=== PATIENT | female | born 1955 | race Caucasian/White ===

== ENCOUNTER 2022-05-28 17:06 | Inpatient (IN) ==
[2022-05-28 17:36] LABS: POC Calcium, Ionized 1.18 (1.16-1.32); POC Creatinine 3.4 (0.6-1.2); POC Potassium 4.4 (3.3-5.1)
[2022-05-28 18:20] LABS: Basophils # (Auto) 0.04 K/mcL (0.00-0.30); Basophils % (Auto) 0.4 % (0.0-2.0); Eosinophils # (Auto) 0.08 K/mcL (0.00-0.70); Eosinophils % (Auto) 0.8 % (0.0-7.0); Hemoglobin 9.6 g/dL (11.2-15.7); Lymphocytes # (Auto) 1.27 K/mcL (1.50-4.80); Mean Platelet Volume 10.1 fL (8.8-12.5); Monocytes # (Auto) 1.03 K/mcL (0.10-0.90); Monocytes % (Auto) 9.7 % (1.0-12.0); Neutrophils % (Auto) 76.3 % (38.0-78.0); Platelet Count 423 K/mcL (140-440); WBC 10.6 K/mcL (4.5-11.0)
[2022-05-28 18:33] LABS: Prothrombin Time 13.5 sec (11.9-14.5)
--- NOTE | 2022-05-28 18:35 | Emergency Department Note ---
HPI General Chief complaint: Rectal Bleed Stated complaint: kidney function eval Time Seen by Provider: 05/28/22 17:08 Source: patient Mode of arrival: ambulatory Limitations: no limitations History of Present Illness HPI Narrative: Narrative: This is a 67-year-old female who presents to the emergency department with abnormal outpatient kidney function. Patient was sent in by her primary care provider. She states that she had labs a week ago which showed poor kidney function she had been drinking fluids for the last 10 days and had them repeated today which showed that they do were not any better even slightly worse. She is unsure of the exact values of her creatinine or GFR. She states that she has some dyspnea on exertion she denies any flank pain urinary changes, she is making urine. She denies any NSAID use she denies history of hypertension and is not on any antihypertensives. Related Data Home Medications Medication Instructions Recorded Confirmed cholecalciferol (vitamin D3) 125 125 mcg PO QDAY 10/03/20 05/28/22 mcg (5,000 unit) tablet (Vitamin D3) multivitamin 1 tab PO QDAY 10/03/20 05/28/22 vit C 250 mg-vit E 90 mg-zinc 40 2 tab PO QDAY 10/03/20 05/28/22 mg-copper 1 [id number]-roqahu capsule (PreserVision AREDS-2) albuterol sulfate 90 mcg/actuation 2 puff inhalation Q4-6HP PRN 05/28/22 aerosol inhaler Dyspnea fluticasone fur. 200 mcg-umeclid 1 ea inhalation QDAY 05/28/22 05/29/22 62.5 mcg-vilant 25 mcg inhalat.powder (Trelegy Ellipta) prednisolone acetate 1 % eye 1 drp ophthalmic (eye) QID 05/28/22 05/29/22 drops,suspension omeprazole 20 mg capsule,delayed 20 mg PO QHS 05/29/22 05/29/22 release rosuvastatin 5 mg tablet 5 mg PO QDAY 05/29/22 05/29/22 Allergies Allergy/AdvReac Type Severity Reaction Status Date / Time codeine AdvReac Mild Vomiting Verified 05/29/22 00:17 [From Tylenol-Codeine #3] Review of Systems ROS ROS Narrative: Narrative: All systems ED: reviewed and negative except as stated. PFSH Narrative Patient History Narrative: Narrative: Medical/Surgical/Family History All Active Problems (Updated 05/29/22 @ 13:30 by Jalyn Sanders MD) Positive fecal occult blood test (Acute) Chronic anemia (Acute) Acute on chronic kidney failure (Acute) Acute kidney injury (Acute) Ruptured globe of right eye (Acute) Laceration of scalp (Acute) Chronic right hip pain (Acute) Social History Smoking Status: Never smoker Exam Narrative Narrative: Narrative: Vital signs noted General: Awake. Alert. No distress. HEENT: NCAT PERRL EOMI. No conjunctivitis. Membranes moist. Neck: Supple, trachea midline Cardiovascular: Tachycardic. No murmur. No rubs. No gallops. Respiratory: No respiratory distress. Breath sounds equal. Lungs clear. Gastrointestinal: Soft. No tenderness Musculoskeletal: No pain. No soft tissue swelling. Good ROM. No signs injury Skin: Warm. Dry. No rash Neurologic: Alert and oriented x3 moves all extremities equally and fully, speech is fluent face is symmetric General Limitations: no limitations Course Vital Signs Vital signs: Vital Signs Temperature 97.7 F 05/28/22 17:08 Pulse Rate 113 H 05/28/22 17:08 Respiratory Rate 22 05/28/22 17:08 Blood Pressure 180/96 05/28/22 17:08 Pulse Oximetry (%) 92 05/28/22 17:08 Oxygen Delivery Method Room Air 05/28/22 17:08 Temperature 97.3 F 05/29/22 08:02 Pulse Rate 101 H 05/29/22 13:13 Respiratory Rate 25 H 05/29/22 13:13 Blood Pressure 121/92 05/29/22 10:52 Pulse Oximetry (%) 96 05/29/22 13:13 Oxygen Delivery Method Nasal Cannula 05/29/22 13:13 Oxygen Flow Rate (L/min) 1 05/29/22 13:13 [facility] MDM Narrative Medical decision making narrative: Narrative: Patient presents to the emergency department with signs of kidney injury and anemia. I have no prior labs for comparison and no values from last week or today which were obtained outpatient. Patient's hemoglobin is 9.6. She denies any black tarry stool or bright red blood per rectum she states that she had a Hemoccult test which was positive. I was able to get a hold of Dr. Joyce patient's primary care provider states that her kidney function had worsened over the last week. She did not recall her having any known chronic kidney disease. The patient has no history of hypertension or diabetes. The patient denies any NSAID use. The patient was able to find her labs from 10 days ago she had a hemoglobin of 9.3, BUN of 40, creatinine of 3.02 GFR of [address] Garner who agreed to follow up with Patient outpatient should there be no other emergent process. Patient signed out to oncoming physician pending the rest of her imaging and lab work-up. Lab Data 05/29/22 05:09 05/29/22 05:08 Labs: Lab Results 05/28/22 05/28/22 05/28/22 Range/Units 17:32 17:32 17:32 WBC 10.6 (4.5-11.0) K/mcL RBC 3.10 L (3.59-5.38) M/mcL Hgb 9.6 L (11.2-15.7) g/dL Hct 31.0 L (34.1-44.9) % POC Hct (36-48) MCV 100.0 (80.0-100.0) fL MCH 31.0 (26.0-34.0) pg MCHC 31.0 (31.0-36.0) g/dL RDW 14.0 (11.5-14.5) % Plt Count 423 (140-440) K/mcL MPV 10.1 (8.8-12.5) fL Immature Gran % (Auto) 0.8 H (0.0-0.5) % Neut % (Auto) 76.3 (38.0-78.0) % Lymph % (Auto) 12.0 L (15.5-49.0) % Cass % (Auto) 9.7 (1.0-12.0) % Eos % (Auto) 0.8 (0.0-7.0) % Baso % (Auto) 0.4 (0.0-2.0) % Lymph # (Auto) 1.27 L (1.50-4.80) K/mcL Cass # (Auto) 1.03 H (0.10-0.90) K/mcL Eos # (Auto) 0.08 (0.00-0.70) K/mcL Baso # (Auto) 0.04 (0.00-0.30) K/mcL Immature Gran # 0.09 H (0.00-0.05) K/mcl Absolute Neutrophils 8.09 H (1.80-8.00) K/mcL PT 13.5 (11.9-14.5) sec INR 1.0 (0.9-1.1) D-Dimer (0.27-0.50) ug/mL POC Sodium (133-145) POC Potassium (3.3-5.1) POC Chloride (96-108) POC Total CO2 (22-30) POC BUN (6-20) POC Creatinine (0.6-1.2) POC Glucose (70-105) POC WB Ioniz Calcium (1.16-1.32) Iron (37-145) ug/dL TIBC (228-428) ug/dl Unsat Iron Binding (112-346) mcg/dL Transferrin % Sat (15-50) % Total Bilirubin 0.2 (0.1-1.0) mg/dL Direct Bilirubin < 0.2 (0-0.3) mg/dL AST 36 H (<32) U/L ALT 68 H (<40) U/L Alkaline Phosphatase 124 H (39-117) U/L NT-Pro-B Natriuret Pep (<125.0) pg/mL Total Protein 6.9 (5.9-8.4) gm/dL Albumin 3.8 (3.2-5.2) gm/dL Globulin 3.1 (2.2-3.7) gm/dL Urine Color Urine Appearance (Clear) Urine pH (5.0-9.0) Ur Specific [place] (1.000-1.035) Urine Protein (Negative) mg/dL Urine Glucose (UA) (Negative) mg/dL Urine Ketones (Negative) mg/dL Urine Occult Blood (Negative) mg/dL Urine Nitrate (Negative) Urine Bilirubin (Negative) mg/dL Urine Urobilinogen mg/dL Ur Leukocyte Esterase (Negative) /uL Urine RBC (0-3) /hpf Urine WBC (0-4) /hpf Ur Squamous Epith Cells (0-4) /hpf Urine Bacteria (0) /hpf Urine Mucus (None) /hpf Ur Culture Indicated? Ur Random Creatinine (28.0-217.0) mg/dL Ur Random Sodium mmol/L Urine Urea Nitrogen mg/dL POC Troponin I (0.00-0.08) 05/28/22 05/28/22 05/28/22 Range/Units 17:32 17:32 17:32 WBC (4.5-11.0) K/mcL RBC (3.59-5.38) M/mcL Hgb (11.2-15.7) g/dL Hct (34.1-44.9) % POC Hct 33.0 L (36-48) MCV (80.0-100.0) fL MCH (26.0-34.0) pg MCHC (31.0-36.0) g/dL RDW (11.5-14.5) % Plt Count (140-440) K/mcL MPV (8.8-12.5) fL Immature Gran % (Auto) (0.0-0.5) % Neut % (Auto) (38.0-78.0) % Lymph % (Auto) (15.5-49.0) % Cass % (Auto) (1.0-12.0) % Eos % (Auto) (0.0-7.0) % Baso % (Auto) (0.0-2.0) % Lymph # (Auto) (1.50-4.80) K/mcL Cass # (Auto) (0.10-0.90) K/mcL Eos # (Auto) (0.00-0.70) K/mcL Baso # (Auto) (0.00-0.30) K/mcL Immature Gran # (0.00-0.05) K/mcl Absolute Neutrophils (1.80-8.00) K/mcL PT (11.9-14.5) sec INR (0.9-1.1) D-Dimer 1.20 H (0.27-0.50) ug/mL POC Sodium 138 (133-145) POC Potassium 4.4 (3.3-5.1) POC Chloride 106 (96-108) POC Total CO2 24.0 (22-30) POC BUN 47 H (6-20) POC Creatinine 3.4 H (0.6-1.2) POC Glucose 111 H (70-105) POC WB Ioniz Calcium 1.18 (1.16-1.32) Iron (37-145) ug/dL TIBC (228-428) ug/dl Unsat Iron Binding (112-346) mcg/dL Transferrin % Sat (15-50) % Total Bilirubin (0.1-1.0) mg/dL Direct Bilirubin (0-0.3) mg/dL AST (<32) U/L ALT (<40) U/L Alkaline Phosphatase (39-117) U/L NT-Pro-B Natriuret Pep 66936.0 H (<125.0) pg/mL Total Protein (5.9-8.4) gm/dL Albumin (3.2-5.2) gm/dL Globulin (2.2-3.7) gm/dL Urine Color Urine Appearance (Clear) Urine pH (5.0-9.0) Ur Specific [place] (1.000-1.035) Urine Protein (Negative) mg/dL Urine Glucose (UA) (Negative) mg/dL Urine Ketones (Negative) mg/dL Urine Occult Blood (Negative) mg/dL Urine Nitrate (Negative) Urine Bilirubin (Negative) mg/dL Urine Urobilinogen mg/dL Ur Leukocyte Esterase (Negative) /uL Urine RBC (0-3) /hpf Urine WBC (0-4) /hpf Ur Squamous Epith Cells (0-4) /hpf Urine Bacteria (0) /hpf Urine Mucus (None) /hpf Ur Culture Indicated? Ur Random Creatinine (28.0-217.0) mg/dL Ur Random Sodium mmol/L Urine Urea Nitrogen mg/dL POC Troponin I (0.00-0.08) 05/28/22 05/28/22 05/28/22 Range/Units 18:02 19:10 19:10 WBC (4.5-11.0) K/mcL RBC (3.59-5.38) M/mcL Hgb (11.2-15.7) g/dL Hct (34.1-44.9) % POC Hct (36-48) MCV (80.0-100.0) fL MCH (26.0-34.0) pg MCHC (31.0-36.0) g/dL RDW (11.5-14.5) % Plt Count (140-440) K/mcL MPV (8.8-12.5) fL Immature Gran % (Auto) (0.0-0.5) % Neut % (Auto) (38.0-78.0) % Lymph % (Auto) (15.5-49.0) % Cass % (Auto) (1.0-12.0) % Eos % (Auto) (0.0-7.0) % Baso % (Auto) (0.0-2.0) % Lymph # (Auto) (1.50-4.80) K/mcL Cass # (Auto) (0.10-0.90) K/mcL Eos # (Auto) (0.00-0.70) K/mcL Baso # (Auto) (0.00-0.30) K/mcL Immature Gran # (0.00-0.05) K/mcl Absolute Neutrophils (1.80-8.00) K/mcL PT (11.9-14.5) sec INR (0.9-1.1) D-Dimer (0.27-0.50) ug/mL POC Sodium (133-145) POC Potassium (3.3-5.1) POC Chloride (96-108) POC Total CO2 (22-30) POC BUN (6-20) POC Creatinine (0.6-1.2) POC Glucose (70-105) POC WB Ioniz Calcium (1.16-1.32) Iron 42 (37-145) ug/dL TIBC 242 (228-428) ug/dl Unsat Iron Binding 200 (112-346) mcg/dL Transferrin % Sat 17 (15-50) % Total Bilirubin (0.1-1.0) mg/dL Direct Bilirubin (0-0.3) mg/dL AST (<32) U/L ALT (<40) U/L Alkaline Phosphatase (39-117) U/L NT-Pro-B Natriuret Pep (<125.0) pg/mL Total Protein (5.9-8.4) gm/dL Albumin (3.2-5.2) gm/dL Globulin (2.2-3.7) gm/dL Urine Color Urine Appearance (Clear) Urine pH (5.0-9.0) Ur Specific [place] (1.000-1.035) Urine Protein (Negative) mg/dL Urine Glucose (UA) (Negative) mg/dL Urine Ketones (Negative) mg/dL Urine Occult Blood (Negative) mg/dL Urine Nitrate (Negative) Urine Bilirubin (Negative) mg/dL Urine Urobilinogen mg/dL Ur Leukocyte Esterase (Negative) /uL Urine RBC (0-3) /hpf Urine WBC (0-4) /hpf Ur Squamous Epith Cells (0-4) /hpf Urine Bacteria (0) /hpf Urine Mucus (None) /hpf Ur Culture Indicated? Ur Random Creatinine 80.3 (28.0-217.0) mg/dL Ur Random Sodium mmol/L Urine Urea Nitrogen 711 mg/dL POC Troponin I (0.00-0.08) 05/28/22 05/28/22 05/28/22 Range/Units 19:10 19:10 20:30 WBC (4.5-11.0) K/mcL RBC (3.59-5.38) M/mcL Hgb (11.2-15.7) g/dL Hct (34.1-44.9) % POC Hct (36-48) MCV (80.0-100.0) fL MCH (26.0-34.0) pg MCHC (31.0-36.0) g/dL RDW (11.5-14.5) % Plt Count (140-440) K/mcL MPV (8.8-12.5) fL Immature Gran % (Auto) (0.0-0.5) % Neut % (Auto) (38.0-78.0) % Lymph % (Auto) (15.5-49.0) % Cass % (Auto) (1.0-12.0) % Eos % (Auto) (0.0-7.0) % Baso % (Auto) (0.0-2.0) % Lymph # (Auto) (1.50-4.80) K/mcL Cass # (Auto) (0.10-0.90) K/mcL Eos # (Auto) (0.00-0.70) K/mcL Baso # (Auto) (0.00-0.30) K/mcL Immature Gran # (0.00-0.05) K/mcl Absolute Neutrophils (1.80-8.00) K/mcL PT (11.9-14.5) sec INR (0.9-1.1) D-Dimer (0.27-0.50) ug/mL POC Sodium (133-145) POC Potassium (3.3-5.1) POC Chloride (96-108) POC Total CO2 (22-30) POC BUN (6-20) POC Creatinine (0.6-1.2) POC Glucose (70-105) POC WB Ioniz Calcium (1.16-1.32) Iron (37-145) ug/dL TIBC (228-428) ug/dl Unsat Iron Binding (112-346) mcg/dL Transferrin % Sat (15-50) % Total Bilirubin (0.1-1.0) mg/dL Direct Bilirubin (0-0.3) mg/dL AST (<32) U/L ALT (<40) U/L Alkaline Phosphatase (39-117) U/L NT-Pro-B Natriuret Pep (<125.0) pg/mL Total Protein (5.9-8.4) gm/dL Albumin (3.2-5.2) gm/dL Globulin (2.2-3.7) gm/dL Urine Color Yellow Urine Appearance Clear (Clear) Urine pH 5.0 (5.0-9.0) Ur Specific [place] 1.019 (1.000-1.035) Urine Protein 30 A (Negative) mg/dL Urine Glucose (UA) Negative (Negative) mg/dL Urine Ketones Negative (Negative) mg/dL Urine Occult Blood Negative (Negative) mg/dL Urine Nitrate Negative (Negative) Urine Bilirubin Negative (Negative) mg/dL Urine Urobilinogen Negative mg/dL Ur Leukocyte Esterase Negative (Negative) /uL Urine RBC 5 H (0-3) /hpf Urine WBC 7 H (0-4) /hpf Ur Squamous Epith Cells 0 (0-4) /hpf Urine Bacteria Few A (0) /hpf Urine Mucus Few A (None) /hpf Ur Culture Indicated? Yes Ur Random Creatinine (28.0-217.0) mg/dL Ur Random Sodium 72 mmol/L Urine Urea Nitrogen mg/dL POC Troponin I 0.05 (0.00-0.08) 05/28/22 Range/Units 20:40 WBC (4.5-11.0) K/mcL RBC (3.59-5.38) M/mcL Hgb (11.2-15.7) g/dL Hct (34.1-44.9) % POC Hct 29.0 L (36-48) MCV (80.0-100.0) fL MCH (26.0-34.0) pg MCHC (31.0-36.0) g/dL RDW (11.5-14.5) % Plt Count (140-440) K/mcL MPV (8.8-12.5) fL Immature Gran % (Auto) (0.0-0.5) % Neut % (Auto) (38.0-78.0) % Lymph % (Auto) (15.5-49.0) % Cass % (Auto) (1.0-12.0) % Eos % (Auto) (0.0-7.0) % Baso % (Auto) (0.0-2.0) % Lymph # (Auto) (1.50-4.80) K/mcL Cass # (Auto) (0.10-0.90) K/mcL Eos # (Auto) (0.00-0.70) K/mcL Baso # (Auto) (0.00-0.30) K/mcL Immature Gran # (0.00-0.05) K/mcl Absolute Neutrophils (1.80-8.00) K/mcL PT (11.9-14.5) sec INR (0.9-1.1) D-Dimer (0.27-0.50) ug/mL POC Sodium 138 (133-145) POC Potassium 4.0 (3.3-5.1) POC Chloride 105 (96-108) POC Total CO2 22.0 (22-30) POC BUN 46 H (6-20) POC Creatinine 3.5 H (0.6-1.2) POC Glucose 104 (70-105) POC WB Ioniz Calcium 1.21 (1.16-1.32) Iron (37-145) ug/dL TIBC (228-428) ug/dl Unsat Iron Binding (112-346) mcg/dL Transferrin % Sat (15-50) % Total Bilirubin (0.1-1.0) mg/dL Direct Bilirubin (0-0.3) mg/dL AST (<32) U/L ALT (<40) U/L Alkaline Phosphatase (39-117) U/L NT-Pro-B Natriuret Pep (<125.0) pg/mL Total Protein (5.9-8.4) gm/dL Albumin (3.2-5.2) gm/dL Globulin (2.2-3.7) gm/dL Urine Color Urine Appearance (Clear) Urine pH (5.0-9.0) Ur Specific [place] (1.000-1.035) Urine Protein (Negative) mg/dL Urine Glucose (UA) (Negative) mg/dL Urine Ketones (Negative) mg/dL Urine Occult Blood (Negative) mg/dL Urine Nitrate (Negative) Urine Bilirubin (Negative) mg/dL Urine Urobilinogen mg/dL Ur Leukocyte Esterase (Negative) /uL Urine RBC (0-3) /hpf Urine WBC (0-4) /hpf Ur Squamous Epith Cells (0-4) /hpf Urine Bacteria (0) /hpf Urine Mucus (None) /hpf Ur Culture Indicated? Ur Random Creatinine (28.0-217.0) mg/dL Ur Random Sodium mmol/L Urine Urea Nitrogen mg/dL POC Troponin I (0.00-0.08) Discharge Plan Patient/Caregiver Discharge Instructions Pt seen by DIMENSIONAL ENGINEER/PA only: No Clinical Impression: Acute kidney injury Patient Disposition: Still a Patient Discharge Date/Time: 05/28/22 22:05
[2022-05-28 18:38] LABS: ALT/SGPT 68 U/L (<40); AST/SGOT 36 U/L (<32); Albumin 3.8 gm/dL (3.2-5.2); Alkaline Phosphatase 124 U/L (39-117); Bilirubin,Direct < 0.2 mg/dL (0-0.3); Bilirubin,Total 0.2 mg/dL (0.1-1.0); Globulin 3.1 gm/dL (2.2-3.7)
[2022-05-28 19:00] LABS: Iron 42 ug/dL (37-145); TIBC Calculation 242 ug/dl (228-428); Transferrin % Saturation 17 % (15-50)
--- NOTE | 2022-05-28 19:39 | Emergency Department Note ---
Course Course Course Narrative: Assumed care of the patient at 1900. [facility] report check labs check patient. Patient has appreciable deterioration of her kidney function which we're not sure how acute it is. Patient had a set of labs done several weeks ago in the clinic, which showed worsening function and she was instructed to get them rechecked and upon rechecking, was called to come in to the ED. She also had a positive hemoccult and some worsening SOB. Dr. Augustin discussed with the bluing oven tender who felt she could be worked up as an outpatient pending an ultrasound which failed to show any obstructions. Her blood work showed a hemoglobin hematocrit of 9.6 and 31 compared to a hemoglobin of 13.69 months ago her creatinine is 3.4 with a calculated GFR of 13.4 when it was 58 in September. BNP is 10,170. Lungs show bibasilar rales. 6 chest x-ray shows a left-sided pleural effusion the patient on the monitor going in and out of atrial fib with a resting rate of approximately 109-140. Patient was given metoprolol 5 mg IV as well as Bumex 0.5 mg IV and started on heparin not sure when she started going in and out of atrial fib so I do not feel comfortable cardioverting her. Patient denies any chest pains but does admit to the palpitations. She states that over the the winter she was treating her orthopedic pain with lots of nonsteroidals and this apparently is what injured her kidneys. Her ultrasound returned with a measurements of the kidneys which neither have hydronephrosis masses or stones. In the also commented on the bilateral pleural effusions. We will admit the patient for CHF and intermittent atrial fibrillation and GISELLE. Vital Signs Vital signs: Vital Signs Temperature 97.7 F 05/28/22 17:08 Pulse Rate 113 H 05/28/22 17:08 Respiratory Rate 22 05/28/22 17:08 Blood Pressure 180/96 05/28/22 17:08 Pulse Oximetry (%) 92 05/28/22 17:08 Oxygen Delivery Method Room Air 05/28/22 17:08 Temperature 97.6 F 05/29/22 00:01 Pulse Rate 104 H 05/29/22 00:01 Respiratory Rate 14 05/29/22 00:01 Blood Pressure 130/116 05/29/22 00:01 Pulse Oximetry (%) 95 05/29/22 00:01 Oxygen Delivery Method Oxymask 05/29/22 00:01 Oxygen Flow Rate (L/min) 2 05/29/22 00:01 MDM MDM Narrative Medical decision making narrative: Narrative: Lab Data 05/28/22 17:32 Labs: Lab Results 05/28/22 05/28/22 05/28/22 Range/Units 17:32 17:32 17:32 WBC 10.6 (4.5-11.0) K/mcL RBC 3.10 L (3.59-5.38) M/mcL Hgb 9.6 L (11.2-15.7) g/dL Hct 31.0 L (34.1-44.9) % POC Hct (36-48) MCV 100.0 (80.0-100.0) fL MCH 31.0 (26.0-34.0) pg MCHC 31.0 (31.0-36.0) g/dL RDW 14.0 (11.5-14.5) % Plt Count 423 (140-440) K/mcL MPV 10.1 (8.8-12.5) fL Immature Gran % (Auto) 0.8 H (0.0-0.5) % Neut % (Auto) 76.3 (38.0-78.0) % Lymph % (Auto) 12.0 L (15.5-49.0) % [place] % (Auto) 9.7 (1.0-12.0) % Eos % (Auto) 0.8 (0.0-7.0) % Baso % (Auto) 0.4 (0.0-2.0) % Lymph # (Auto) 1.27 L (1.50-4.80) K/mcL [place] # (Auto) 1.03 H (0.10-0.90) K/mcL Eos # (Auto) 0.08 (0.00-0.70) K/mcL Baso # (Auto) 0.04 (0.00-0.30) K/mcL Immature Gran # 0.09 H (0.00-0.05) K/mcl Absolute Neutrophils 8.09 H (1.80-8.00) K/mcL PT 13.5 (11.9-14.5) sec INR 1.0 (0.9-1.1) D-Dimer (0.27-0.50) ug/mL POC Sodium (133-145) POC Potassium (3.3-5.1) POC Chloride (96-108) POC Total CO2 (22-30) POC BUN (6-20) POC Creatinine (0.6-1.2) POC Glucose (70-105) POC WB Ioniz Calcium (1.16-1.32) Iron (37-145) ug/dL TIBC (228-428) ug/dl Unsat Iron Binding (112-346) mcg/dL Transferrin % Sat (15-50) % Total Bilirubin 0.2 (0.1-1.0) mg/dL Direct Bilirubin < 0.2 (0-0.3) mg/dL AST 36 H (<32) U/L ALT 68 H (<40) U/L Alkaline Phosphatase 124 H (39-117) U/L NT-Pro-B Natriuret Pep (<125.0) pg/mL Total Protein 6.9 (5.9-8.4) gm/dL Albumin 3.8 (3.2-5.2) gm/dL Globulin 3.1 (2.2-3.7) gm/dL Urine Color Urine Appearance (Clear) Urine pH (5.0-9.0) Ur Specific [place] (1.000-1.035) Urine Protein (Negative) mg/dL Urine Glucose (UA) (Negative) mg/dL Urine Ketones (Negative) mg/dL Urine Occult Blood (Negative) mg/dL Urine Nitrate (Negative) Urine Bilirubin (Negative) mg/dL Urine Urobilinogen mg/dL Ur Leukocyte Esterase (Negative) /uL Urine RBC (0-3) /hpf Urine WBC (0-4) /hpf Ur Squamous Epith Cells (0-4) /hpf Urine Bacteria (0) /hpf Urine Mucus (None) /hpf Ur Culture Indicated? Ur Random Creatinine (28.0-217.0) mg/dL Ur Random Sodium mmol/L Urine Urea Nitrogen mg/dL POC Troponin I (0.00-0.08) 05/28/22 05/28/22 05/28/22 Range/Units 17:32 17:32 17:32 WBC (4.5-11.0) K/mcL RBC (3.59-5.38) M/mcL Hgb (11.2-15.7) g/dL Hct (34.1-44.9) % POC Hct 33.0 L (36-48) MCV (80.0-100.0) fL MCH (26.0-34.0) pg MCHC (31.0-36.0) g/dL RDW (11.5-14.5) % Plt Count (140-440) K/mcL MPV (8.8-12.5) fL Immature Gran % (Auto) (0.0-0.5) % Neut % (Auto) (38.0-78.0) % Lymph % (Auto) (15.5-49.0) % [place] % (Auto) (1.0-12.0) % Eos % (Auto) (0.0-7.0) % Baso % (Auto) (0.0-2.0) % Lymph # (Auto) (1.50-4.80) K/mcL [place] # (Auto) (0.10-0.90) K/mcL Eos # (Auto) (0.00-0.70) K/mcL Baso # (Auto) (0.00-0.30) K/mcL Immature Gran # (0.00-0.05) K/mcl Absolute Neutrophils (1.80-8.00) K/mcL PT (11.9-14.5) sec INR (0.9-1.1) D-Dimer 1.20 H (0.27-0.50) ug/mL POC Sodium 138 (133-145) POC Potassium 4.4 (3.3-5.1) POC Chloride 106 (96-108) POC Total CO2 24.0 (22-30) POC BUN 47 H (6-20) POC Creatinine 3.4 H (0.6-1.2) POC Glucose 111 H (70-105) POC WB Ioniz Calcium 1.18 (1.16-1.32) Iron (37-145) ug/dL TIBC (228-428) ug/dl Unsat Iron Binding (112-346) mcg/dL Transferrin % Sat (15-50) % Total Bilirubin (0.1-1.0) mg/dL Direct Bilirubin (0-0.3) mg/dL AST (<32) U/L ALT (<40) U/L Alkaline Phosphatase (39-117) U/L NT-Pro-B Natriuret Pep 61497.0 H (<125.0) pg/mL Total Protein (5.9-8.4) gm/dL Albumin (3.2-5.2) gm/dL Globulin (2.2-3.7) gm/dL Urine Color Urine Appearance (Clear) Urine pH (5.0-9.0) Ur Specific [place] (1.000-1.035) Urine Protein (Negative) mg/dL Urine Glucose (UA) (Negative) mg/dL Urine Ketones (Negative) mg/dL Urine Occult Blood (Negative) mg/dL Urine Nitrate (Negative) Urine Bilirubin (Negative) mg/dL Urine Urobilinogen mg/dL Ur Leukocyte Esterase (Negative) /uL Urine RBC (0-3) /hpf Urine WBC (0-4) /hpf Ur Squamous Epith Cells (0-4) /hpf Urine Bacteria (0) /hpf Urine Mucus (None) /hpf Ur Culture Indicated? Ur Random Creatinine (28.0-217.0) mg/dL Ur Random Sodium mmol/L Urine Urea Nitrogen mg/dL POC Troponin I (0.00-0.08) 05/28/22 05/28/22 05/28/22 Range/Units 18:02 19:10 19:10 WBC (4.5-11.0) K/mcL RBC (3.59-5.38) M/mcL Hgb (11.2-15.7) g/dL Hct (34.1-44.9) % POC Hct (36-48) MCV (80.0-100.0) fL MCH (26.0-34.0) pg MCHC (31.0-36.0) g/dL RDW (11.5-14.5) % Plt Count (140-440) K/mcL MPV (8.8-12.5) fL Immature Gran % (Auto) (0.0-0.5) % Neut % (Auto) (38.0-78.0) % Lymph % (Auto) (15.5-49.0) % [place] % (Auto) (1.0-12.0) % Eos % (Auto) (0.0-7.0) % Baso % (Auto) (0.0-2.0) % Lymph # (Auto) (1.50-4.80) K/mcL [place] # (Auto) (0.10-0.90) K/mcL Eos # (Auto) (0.00-0.70) K/mcL Baso # (Auto) (0.00-0.30) K/mcL Immature Gran # (0.00-0.05) K/mcl Absolute Neutrophils (1.80-8.00) K/mcL PT (11.9-14.5) sec INR (0.9-1.1) D-Dimer (0.27-0.50) ug/mL POC Sodium (133-145) POC Potassium (3.3-5.1) POC Chloride (96-108) POC Total CO2 (22-30) POC BUN (6-20) POC Creatinine (0.6-1.2) POC Glucose (70-105) POC WB Ioniz Calcium (1.16-1.32) Iron 42 (37-145) ug/dL TIBC 242 (228-428) ug/dl Unsat Iron Binding 200 (112-346) mcg/dL Transferrin % Sat 17 (15-50) % Total Bilirubin (0.1-1.0) mg/dL Direct Bilirubin (0-0.3) mg/dL AST (<32) U/L ALT (<40) U/L Alkaline Phosphatase (39-117) U/L NT-Pro-B Natriuret Pep (<125.0) pg/mL Total Protein (5.9-8.4) gm/dL Albumin (3.2-5.2) gm/dL Globulin (2.2-3.7) gm/dL Urine Color Urine Appearance (Clear) Urine pH (5.0-9.0) Ur Specific [place] (1.000-1.035) Urine Protein (Negative) mg/dL Urine Glucose (UA) (Negative) mg/dL Urine Ketones (Negative) mg/dL Urine Occult Blood (Negative) mg/dL Urine Nitrate (Negative) Urine Bilirubin (Negative) mg/dL Urine Urobilinogen mg/dL Ur Leukocyte Esterase (Negative) /uL Urine RBC (0-3) /hpf Urine WBC (0-4) /hpf Ur Squamous Epith Cells (0-4) /hpf Urine Bacteria (0) /hpf Urine Mucus (None) /hpf Ur Culture Indicated? Ur Random Creatinine 80.3 (28.0-217.0) mg/dL Ur Random Sodium mmol/L Urine Urea Nitrogen 711 mg/dL POC Troponin I (0.00-0.08) 05/28/22 05/28/22 05/28/22 Range/Units 19:10 19:10 20:30 WBC (4.5-11.0) K/mcL RBC (3.59-5.38) M/mcL Hgb (11.2-15.7) g/dL Hct (34.1-44.9) % POC Hct (36-48) MCV (80.0-100.0) fL MCH (26.0-34.0) pg MCHC (31.0-36.0) g/dL RDW (11.5-14.5) % Plt Count (140-440) K/mcL MPV (8.8-12.5) fL Immature Gran % (Auto) (0.0-0.5) % Neut % (Auto) (38.0-78.0) % Lymph % (Auto) (15.5-49.0) % [place] % (Auto) (1.0-12.0) % Eos % (Auto) (0.0-7.0) % Baso % (Auto) (0.0-2.0) % Lymph # (Auto) (1.50-4.80) K/mcL [place] # (Auto) (0.10-0.90) K/mcL Eos # (Auto) (0.00-0.70) K/mcL Baso # (Auto) (0.00-0.30) K/mcL Immature Gran # (0.00-0.05) K/mcl Absolute Neutrophils (1.80-8.00) K/mcL PT (11.9-14.5) sec INR (0.9-1.1) D-Dimer (0.27-0.50) ug/mL POC Sodium (133-145) POC Potassium (3.3-5.1) POC Chloride (96-108) POC Total CO2 (22-30) POC BUN (6-20) POC Creatinine (0.6-1.2) POC Glucose (70-105) POC WB Ioniz Calcium (1.16-1.32) Iron (37-145) ug/dL TIBC (228-428) ug/dl Unsat Iron Binding (112-346) mcg/dL Transferrin % Sat (15-50) % Total Bilirubin (0.1-1.0) mg/dL Direct Bilirubin (0-0.3) mg/dL AST (<32) U/L ALT (<40) U/L Alkaline Phosphatase (39-117) U/L NT-Pro-B Natriuret Pep (<125.0) pg/mL Total Protein (5.9-8.4) gm/dL Albumin (3.2-5.2) gm/dL Globulin (2.2-3.7) gm/dL Urine Color Yellow Urine Appearance Clear (Clear) Urine pH 5.0 (5.0-9.0) Ur Specific [place] 1.019 (1.000-1.035) Urine Protein 30 A (Negative) mg/dL Urine Glucose (UA) Negative (Negative) mg/dL Urine Ketones Negative (Negative) mg/dL Urine Occult Blood Negative (Negative) mg/dL Urine Nitrate Negative (Negative) Urine Bilirubin Negative (Negative) mg/dL Urine Urobilinogen Negative mg/dL Ur Leukocyte Esterase Negative (Negative) /uL Urine RBC 5 H (0-3) /hpf Urine WBC 7 H (0-4) /hpf Ur Squamous Epith Cells 0 (0-4) /hpf Urine Bacteria Few A (0) /hpf Urine Mucus Few A (None) /hpf Ur Culture Indicated? Yes Ur Random Creatinine (28.0-217.0) mg/dL Ur Random Sodium 72 mmol/L Urine Urea Nitrogen mg/dL POC Troponin I 0.05 (0.00-0.08) 05/28/22 Range/Units 20:40 WBC (4.5-11.0) K/mcL RBC (3.59-5.38) M/mcL Hgb (11.2-15.7) g/dL Hct (34.1-44.9) % POC Hct 29.0 L (36-48) MCV (80.0-100.0) fL MCH (26.0-34.0) pg MCHC (31.0-36.0) g/dL RDW (11.5-14.5) % Plt Count (140-440) K/mcL MPV (8.8-12.5) fL Immature Gran % (Auto) (0.0-0.5) % Neut % (Auto) (38.0-78.0) % Lymph % (Auto) (15.5-49.0) % [place] % (Auto) (1.0-12.0) % Eos % (Auto) (0.0-7.0) % Baso % (Auto) (0.0-2.0) % Lymph # (Auto) (1.50-4.80) K/mcL [place] # (Auto) (0.10-0.90) K/mcL Eos # (Auto) (0.00-0.70) K/mcL Baso # (Auto) (0.00-0.30) K/mcL Immature Gran # (0.00-0.05) K/mcl Absolute Neutrophils (1.80-8.00) K/mcL PT (11.9-14.5) sec INR (0.9-1.1) D-Dimer (0.27-0.50) ug/mL POC Sodium 138 (133-145) POC Potassium 4.0 (3.3-5.1) POC Chloride 105 (96-108) POC Total CO2 22.0 (22-30) POC BUN 46 H (6-20) POC Creatinine 3.5 H (0.6-1.2) POC Glucose 104 (70-105) POC WB Ioniz Calcium 1.21 (1.16-1.32) Iron (37-145) ug/dL TIBC (228-428) ug/dl Unsat Iron Binding (112-346) mcg/dL Transferrin % Sat (15-50) % Total Bilirubin (0.1-1.0) mg/dL Direct Bilirubin (0-0.3) mg/dL AST (<32) U/L ALT (<40) U/L Alkaline Phosphatase (39-117) U/L NT-Pro-B Natriuret Pep (<125.0) pg/mL Total Protein (5.9-8.4) gm/dL Albumin (3.2-5.2) gm/dL Globulin (2.2-3.7) gm/dL Urine Color Urine Appearance (Clear) Urine pH (5.0-9.0) Ur Specific [place] (1.000-1.035) Urine Protein (Negative) mg/dL Urine Glucose (UA) (Negative) mg/dL Urine Ketones (Negative) mg/dL Urine Occult Blood (Negative) mg/dL Urine Nitrate (Negative) Urine Bilirubin (Negative) mg/dL Urine Urobilinogen mg/dL Ur Leukocyte Esterase (Negative) /uL Urine RBC (0-3) /hpf Urine WBC (0-4) /hpf Ur Squamous Epith Cells (0-4) /hpf Urine Bacteria (0) /hpf Urine Mucus (None) /hpf Ur Culture Indicated? Ur Random Creatinine (28.0-217.0) mg/dL Ur Random Sodium mmol/L Urine Urea Nitrogen mg/dL POC Troponin I (0.00-0.08) Discharge Plan Patient/Caregiver Discharge Instructions Pt seen by CLUBHOUSE ATTENDANT/PA only: No Patient Disposition: Xfer As Inpt ([facility]) Discharge Date/Time: 05/28/22 22:05
[2022-05-28 20:02] LABS: Appearance,Urine CLEAR (Clear); Bacteria,Urine FEW /hpf (0); Bilirubin,Urine Negative (Negative); Color,Urine YELLOW; Culture Indicated,Urine Yes; Glucose,Urine (UA) Negative (Negative); Ketones,Urine Negative (Negative); Leukocyte Esterase,Urine Negative /uL (Negative); Mucus,Urine FEW /hpf; Nitrate,Urine Negative (Negative); Protein,Urine 30 mg/dL (Negative); Specific Gravity,Urine 1.019 (1.000-1.035); Urine Blood Negative (Negative); Urine RBC 5 /hpf (0-3); Urine Squamous Epithelial Cell 0 /hpf (0-4); Urine WBC 7 /hpf (0-4); Urobilinogen,Urine Negative
[2022-05-28] MEDS ORDERED: METOPROLOL TARTRATE 5 MG/5 ML VIAL IV ONE ×2 (20:09→20:15)
[2022-05-28] MEDS ORDERED: BUMETANIDE 1 MG/4 ML VIAL IV ONE (20:16)
[2022-05-28] MEDS ORDERED: HEPARIN 5,000 UNIT/ML VIAL IV ONE (20:21)
[2022-05-28 20:44] LABS: POC Calcium, Ionized 1.21 (1.16-1.32); POC Creatinine 3.5 (0.6-1.2)
[2022-05-28] MEDS ORDERED: LACTULOSE 20 GM/30 ML ORAL.SOL PO PRN (22:11)
[2022-05-28] MEDS ORDERED: ONDANSETRON 4 MG/2 ML VIAL IV PRN ×2 (22:11)
[2022-05-28] MEDS ORDERED: DOCUSATE SODIUM 100 MG CAPSULE PO SCH (22:11)
[2022-05-28] MEDS ORDERED: 0.9 % SODIUM CHLORIDE 10 ML SYRINGE IV SCH ×2 (22:11)
[2022-05-28] MEDS ORDERED: SENNOSIDES 1 TABLET PO PRN (22:11)
[2022-05-28 22:14] LABS: Urea Nitrogen, Urine 711 mg/dL
[2022-05-28] MEDS: 0.9 % SODIUM CHLORIDE 10 ML SYRINGE IV SCH (22:16)
[2022-05-28] MEDS ORDERED: ACETAMINOPHEN 325 MG TABLET PO PRN (22:48)
[2022-05-28] MEDS ORDERED: IBUPROFEN 600 MG TABLET PO PRN (22:49)
[2022-05-28] MEDS ORDERED: ACETAMINOPHEN 500 MG TABLET PO ONE (23:15)
[2022-05-28] MEDS ORDERED: IBUPROFEN 600 MG TABLET PO ONE (23:17)
[2022-05-28] MEDS: DOCUSATE SODIUM 100 MG CAPSULE PO SCH (23:31)
[2022-05-28] MEDS: SENNOSIDES 1 TABLET PO SCH (23:32)
[2022-05-28] MEDS: METOPROLOL SUCCINATE 25 MG TAB.XL.24H PO SCH (23:32)
[2022-05-28] MEDS: FUROSEMIDE 100 MG/10 ML VIAL IV SCH (23:55)
[2022-05-28] MEDS: ENOXAPARIN 80 MG/0.8 ML SYRINGE SQ SCH (23:55)
--- NOTE | 2022-05-29 03:48 | XRay Report ---
CLINICAL INFORMATION: COPD shortness of breath COMPARISON: 03/30/2014 TECHNIQUE: PA and lateral views were obtained. FINDINGS: The heart is mildly enlarged. Mediastinum is unremarkable. Pulmonary vessels are mildly distended is mild interstitial edema in both lungs. Small bilateral pleural effusions noted. IMPRESSION: Moderate CHF Interpreted and Authenticated by: Reji Boss 05/29/22
--- NOTE | 2022-05-29 03:56 | Ultrasound Report ---
CLINICAL INFORMATION: Decreased renal function COMPARISON: None. FINDINGS: Both kidneys are normal in size, position, configuration and echotexture: The right is 9.5 x 5.8 cm and the left is 11 x 5.7 cm. There are no solid/cystic lesions, stones or hydronephrosis. The arterial blood flow is grossly normal to both kidneys on color Doppler. Urinary bladder volume is 67 cc with no postvoid residual residual. No focal bladder lesions. IMPRESSION: Normal renal ultrasound. Interpreted and Authenticated by: Reji Boss 05/29/22
[2022-05-29] MEDS: 0.9 % SODIUM CHLORIDE 10 ML SYRINGE IV SCH ×3 (05:58→20:14)
[2022-05-29 06:10] LABS: Basophils # (Auto) 0.05 K/mcL (0.00-0.30); Basophils % (Auto) 0.5 % (0.0-2.0); Hematocrit 29.2 % (34.1-44.9); Hemoglobin 9.1 g/dL (11.2-15.7); Lymphocytes # (Auto) 1.45 K/mcL (1.50-4.80); Lymphocytes % (Auto) 14.8 % (15.5-49.0); Mean Corpuscular HGB Conc 31.2 g/dL (31.0-36.0); Mean Platelet Volume 10.2 fL (8.8-12.5); Monocytes # (Auto) 0.99 K/mcL (0.10-0.90); Monocytes % (Auto) 10.1 % (1.0-12.0); Neutrophils % (Auto) 73.1 % (38.0-78.0); Platelet Count 362 K/mcL (140-440); RBC 2.89 M/mcL (3.59-5.38); Red Cell Distribution Width 13.6 % (11.5-14.5); WBC 9.8 K/mcL (4.5-11.0)
[2022-05-29] MEDS ORDERED: ACETAMINOPHEN 500 MG TABLET PO ONE (06:27)
[2022-05-29 06:28] LABS: Blood Urea Nitrogen 48 mg/dL (8-23); Carbon Dioxide 22 mmol/L (22-30); Chloride 102 mmol/L (96-108); Glomerular Filtration Rate 15; Glucose 91 mg/dL (70-105); Phosphorous 4.1 mg/dL (2.5-4.5)
[2022-05-29] MEDS ORDERED: METOPROLOL TARTRATE 5 MG/5 ML VIAL IV ONE ×4 (08:54→23:16)
[2022-05-29] MEDS ORDERED: methylPREDNISolone SOD SUCC 125 MG/2 ML VIAL IV ONE (08:54)
[2022-05-29] MEDS: ENOXAPARIN 80 MG/0.8 ML SYRINGE SQ SCH ×2 (09:07→20:13)
[2022-05-29] MEDS: FUROSEMIDE 100 MG/10 ML VIAL IV SCH ×2 (09:08→20:13)
[2022-05-29] MEDS: AZITHROMYCIN 250 MG TABLET PO SCH (09:08)
[2022-05-29] MEDS: METOPROLOL SUCCINATE 25 MG TAB.XL.24H PO SCH ×2 (09:08→20:14)
[2022-05-29] MEDS: DOCUSATE SODIUM 100 MG CAPSULE PO SCH ×2 (09:08→20:14)
--- NOTE | 2022-05-29 09:37 | Nephrology Consult Note ---
HPI Date of Consult Consult Date: 05/29/22 Requesting physician: Hector Augustin Primary Care Provider: Benson Joyce DO Consult Narrative Chief complaint: Elevated serum creatinine Reason for consult: Acute kidney injury History of present illness: Luana Menon is a 67-year-old female sent to ED by her PCP for elevated serum creatinine. Her serum creatinine was elevated a week ago and failed to improve. In ED, her workup was also significant for anemia, CHF and atrial fibrillation. cc:: CC: Roxana Cason MD Constitutional Constitutional: Present fatigue and weakness EENT Nose, mouth and throat: Absent nasal congestion or sore throat Cardiovascular Cardiovascular: Present palpatations; Absent chest pain Respiratory Respiratory: Absent dyspnea or wheezing Gastrointestinal Gastrointestinal: Absent nausea or vomiting Genitourinary Genitourinary: Absent dysuria or hematuria Integumentary Integumentary: Absent rash or wounds Neurological Neurological: Absent confusion Psychiatric Psychiatric: Absent anxiety or panic attacks Hematologic/Lymphatic Hematologic/Lymphatic: Absent easy bleeding or easy bruising Allergic/Immunologic Allergic/Immunologic: Absent tongue swelling or uticaria PFSH PFSH All Active Problems (Updated 05/29/22 @ 09:35 by Shon Mcmahon MD) Acute kidney injury (Acute) Ruptured globe of right eye (Acute) Laceration of scalp (Acute) Chronic right hip pain (Acute) Social History smoking status: Former smoker MEDS/ALLERGIES Home Medications and Allergies Home Medications Medication Instructions Recorded Confirmed Type cholecalciferol (vitamin D3) 125 125 mcg PO QDAY 10/03/20 05/28/22 History mcg (5,000 unit) tablet (Vitamin D3) multivitamin 1 tab PO QDAY 10/03/20 05/28/22 History vit C 250 mg-vit E 90 mg-zinc 40 2 tab PO QDAY 10/03/20 05/28/22 History mg-copper 1 [id number] capsule (PreserVision AREDS-2) methylprednisolone 4 mg tablets in 4 mg PO QDAY #21 tabs 02/18/22 Rx a dose pack (Medrol (Shiv)) albuterol sulfate 90 mcg/actuation 2 puff inhalation Q4-6HP PRN 05/28/22 05/28/22 History aerosol inhaler Dyspnea fluticasone fur. 200 mcg-umeclid 1 ea inhalation QDAY 05/28/22 05/28/22 History 62.5 mcg-vilant 25 mcg inhalat.powder (Trelegy Ellipta) prednisolone acetate 1 % eye 1 drp ophthalmic (eye) TID 05/28/22 05/28/22 History drops,suspension Allergies Allergy/AdvReac Type Severity Reaction Status Date / Time codeine AdvReac Mild Vomiting Verified 05/29/22 00:17 [From Tylenol-Codeine #3] Physical Examination Vital Signs Vital signs: Temp Pulse Resp BP Pulse Ox O2 Del Method O2 Flow Rate 99.2 F H 87 22 140/101 95 Oxymask 2 05/29/22 04:02 05/29/22 06:00 05/29/22 06:00 05/29/22 06:00 05/29/22 06:00 05/29/22 06:00 05/29/22 06:00 General Appearance General appearance: appears started age EENT EENT: mucous membranes moist Neck Neck: no JVD Respiratory Respiratory: clear Cardiovascular Cardiology: no edema Gastrointestinal Gastrointestinal: no tenderness Integumentary Integumentary: no rash Neurologic Neurologic: alert and oriented x3 Musculoskeletal Musculoskeletal: no deformities Psychiatric Psychiatric: mood/affect appropriate and cooperative Results Lab Results 05/29/22 05:09 05/29/22 05:08 Lab results: Most recent lab results Calcium 9.0 mg/dL (8.6-10.4) 05/29/22 05:08 Phosphorus 4.1 mg/dL (2.5-4.5) 05/29/22 05:08 Magnesium 2.0 mg/dL (1.6-2.5) 05/29/22 05:08 A/P Assessment and plan (1) Acute kidney injury: Assessment and plan: Luana Menon is a 67-year-old female sent to ED by her PCP for elevated serum creatinine. Her serum creatinine was elevated a week ago and failed to improve. In ED, her workup was also significant for anemia, CHF and atrial fibrillation. Nephrology consultation was requested for acute kidney injury. Acute kidney injury, present on arrival. There is no recent history of IV contrast administration. Intravascular volume depletion unlikely. She had he asad NSAID use for about 3 months until April 2022. Work up: Urinalysis on 05/28/22: Yellow, Clear, pH 5.0, SG 1.019, protein 30, blood negative, leukocyte esterase negative, culture pending. Urine Sodium on 05/28/22: 72 mmol/L. Renal US on 05/28/22: Normal renal ultrasound. Progress: Serum creatinine 3.0 on 05/29/22. Baseline serum creatinine: Not available. Urine output: 1250 ml reported in the past 24 hours. Fluid overload. No uremic symptoms. Recommendations/Plan: No acute hemodialysis need. SPEP, C3, C4, dsDNA Ab, ANCA screen, anti-GBM Ab ordered. Avoid NSAIDs, nephrotoxic medications and IV contrast. Monitor BMP and urine output. Status: Acute Time Spent With Patient Time: Total time spent is greater than 50% in coordination of care (as documented) at patient's floor/unit and/or counseling patient:
[2022-05-29] MEDS: hydrALAZINE 10 MG TABLET PO SCH ×3 (09:47→20:13)
[2022-05-29] MEDS ORDERED: MAG HYDROX/AL HYDROX/SIMETH 30 ML ORAL.SUSP PO PRN (09:54)
[2022-05-29 11:04] LABS: Complement C3 143.5 mg/dL (90.0-180.0)
[2022-05-29 12:21] LABS: Creatinine, Spot Urine 42.2 mg/dL (28.0-217.0); Pro:Crea Ratio 0.47 (<0.20)
[2022-05-29] MEDS: BUDESONIDE 0.5 MG/2 ML AMPUL.NEB NEB SCH ×3 (12:53→19:26)
[2022-05-29] MEDS: IPRATROPIUM/ALBUTEROL 3 ML AMPUL.NEB NEB SCH ×2 (13:05→18:50)
--- NOTE | 2022-05-29 13:20 | General Surgery Consult Note ---
HPI Date of Consult Consult Date: 05/29/22 Requesting physician: Jalyn Sanders Primary Care Provider: Benson Joyce DO Consult Narrative Chief complaint: Acute on chronic Kidney injury; chronic anemia Reason for consult: Guaiac positive stool History of present illness: 67-year-old female with history of alcohol 2-week history of increasing shortness of breath and fatigue. She has been followed by her primary care provider who ordered some labs which showed anemia and elevated BUN and creatinine with GFR of 15 cc. On evaluation she is found to have pleural effusion bilaterally with hemoglobin 11.1 and hematocrit 29. BUN is 48 and cr eatinine is 3. Patient has had hip pain since early February and has been taking 800 mg of ibuprofen every 3 hours for this pain. She has had increasing dyspnea and some shortness of breath. She denies abdominal pain and she has been having regular bowel movements without any black stools. Reportedly fecal guaiac was positive for blood. cc:: CC: Roxana Cason MD Constitutional Constitutional: Present fatigue, lethargy, malaise, weakness and weight loss Respiratory Respiratory: Present cough, dyspnea, dyspnea on exertion and chest congestion Gastrointestinal Gastrointestinal: Present heartburn; Absent abdominal pain, change in stool character, dysphagia, hematochezia, melena, nausea or vomiting Musculoskeletal Musculoskeletal: Present abnormal gait and back pain Additional comments: Chronic right hip pain Neurological Neurological: Present loss of vision and tremor(s) (Essential tremors) Hematologic/Lymphatic Hematologic/Lymphatic: Absent easy bleeding, easy bruising or lymphadenopathy Allergic/Immunologic Allergic/Immunologic: Absent tongue swelling, throat swelling, uticaria, wheezing or lip swelling PFSH PFSH All Active Problems (Updated 05/29/22 @ 13:30 by Jalyn Sanders MD) Positive fecal occult blood test (Acute) Chronic anemia (Acute) Acute on chronic kidney failure (Acute) Acute kidney injury (Acute) Ruptured globe of right eye (Acute) Laceration of scalp (Acute) Chronic right hip pain (Acute) Social History smoking status: Former smoker MEDS/ALLERGIES Home Medications and Allergies Home Medications Medication Instructions Recorded Confirmed Type cholecalciferol (vitamin D3) 125 125 mcg PO QDAY 10/03/20 05/28/22 History mcg (5,000 unit) tablet (Vitamin D3) multivitamin 1 tab PO QDAY 10/03/20 05/28/22 History vit C 250 mg-vit E 90 mg-zinc 40 2 tab PO QDAY 10/03/20 05/28/22 History mg-copper 1 oc-iuyiuk-ckngat capsule (PreserVision AREDS-2) albuterol sulfate 90 mcg/actuation 2 puff inhalation Q4-6HP PRN 05/28/22 05/28/22 History aerosol inhaler Dyspnea fluticasone fur. 200 mcg-umeclid 1 ea inhalation QDAY 05/28/22 05/29/22 History 62.5 mcg-vilant 25 mcg inhalat.powder (Trelegy Ellipta) prednisolone acetate 1 % eye 1 drp ophthalmic (eye) QID 05/28/22 05/29/22 History drops,suspension omeprazole 20 mg capsule,delayed 20 mg PO QHS 05/29/22 05/29/22 History release rosuvastatin 5 mg tablet 5 mg PO QDAY 05/29/22 05/29/22 History Allergies Allergy/AdvReac Type Severity Reaction Status Date / Time codeine AdvReac Mild Vomiting Verified 05/29/22 00:17 [From Tylenol-Codeine #3] Physical Examination Vital Signs Vital signs: Temp Pulse Resp BP Pulse Ox O2 Del Method O2 Flow Rate 97.3 F 101 H 25 H 121/92 96 Nasal Cannula 1 05/29/22 08:02 05/29/22 13:13 05/29/22 13:13 05/29/22 10:52 05/29/22 13:13 05/29/22 13:13 05/29/22 13:13 General physical appearance General physical exam: well developed, well nourished, no distress, no pain and chronically ill Eyes Eye exam: other (No vision right eye) ENT ENT exam: normal mucosa, decreased hearing and poor retirement Head Head exam IM: Present atraumatic, normal inspection and normocephalic Neck Neck exam: no masses, no bruits, trachea midline, no lymphadenopathy and no venous distension Cardiovascular Cardiovascular exam IM: Present normal rate and rhythm, +S1, +S2 and tachycardia (Heart rate 120 irregular); Absent gallop or JVD Respiratory Respiratory exam: normal expansion, normal respiratory effort and clear to auscultation Abdomen Abdomen: Present soft and tender (Mild epigastric tenderness); Absent guarding or distended Integumentary Integumentary: Present no rash, no growths and no abnormal pigmentation Neurologic Neurologic: Present normal coordination and normal sensation Musculoskeletal Musculoskeletal: Present normal gait and normal posture Psychiatric Psychiatric: Present oriented to time, oriented to person, oriented to place, speech is normal and memory intact Results Labs 05/29/22 05:09 05/29/22 05:08 Labs: Abnormal lab results 05/28/22 05/28/22 05/28/22 Range/Units 17:32 17:32 17:32 RBC 3.10 L (3.59-5.38) M/mcL Hgb 9.6 L (11.2-15.7) g/dL Hct 31.0 L (34.1-44.9) % POC Hct 33.0 L (36-48) MCV (80.0-100.0) fL Immature Gran % (Auto) 0.8 H (0.0-0.5) % Lymph % (Auto) 12.0 L (15.5-49.0) % Lymph # (Auto) 1.27 L (1.50-4.80) K/mcL Evans # (Auto) 1.03 H (0.10-0.90) K/mcL Immature Gran # 0.09 H (0.00-0.05) K/mcl Absolute Neutrophils 8.09 H (1.80-8.00) K/mcL D-Dimer (0.27-0.50) ug/mL POC BUN 47 H (6-20) BUN (8-23) mg/dL Creatinine (0.6-1.1) mg/dL POC Creatinine 3.4 H (0.6-1.2) POC Glucose 111 H (70-105) AST 36 H (<32) U/L ALT 68 H (<40) U/L Alkaline Phosphatase 124 H (39-117) U/L NT-Pro-B Natriuret Pep (<125.0) pg/mL Urine Protein (Negative) mg/dL Urine RBC (0-3) /hpf Urine WBC (0-4) /hpf Urine Bacteria (0) /hpf Urine Mucus (None) /hpf U [place] Prot/Creat Ratio (<0.20) 05/28/22 05/28/22 05/28/22 Range/Units 17:32 17:32 19:10 RBC (3.59-5.38) M/mcL Hgb (11.2-15.7) g/dL Hct (34.1-44.9) % POC Hct (36-48) MCV (80.0-100.0) fL Immature Gran % (Auto) (0.0-0.5) % Lymph % (Auto) (15.5-49.0) % Lymph # (Auto) (1.50-4.80) K/mcL Evans # (Auto) (0.10-0.90) K/mcL Immature Gran # (0.00-0.05) K/mcl Absolute Neutrophils (1.80-8.00) K/mcL D-Dimer 1.20 H (0.27-0.50) ug/mL POC BUN (6-20) BUN (8-23) mg/dL Creatinine (0.6-1.1) mg/dL POC Creatinine (0.6-1.2) POC Glucose (70-105) AST (<32) U/L ALT (<40) U/L Alkaline Phosphatase (39-117) U/L NT-Pro-B Natriuret Pep 55098.0 H (<125.0) pg/mL Urine Protein 30 A (Negative) mg/dL Urine RBC 5 H (0-3) /hpf Urine WBC 7 H (0-4) /hpf Urine Bacteria Few A (0) /hpf Urine Mucus Few A (None) /hpf U [place] Prot/Creat Ratio (<0.20) 05/28/22 05/29/22 05/29/22 Range/Units 20:40 05:08 05:09 RBC 2.89 L (3.59-5.38) M/mcL Hgb 9.1 L (11.2-15.7) g/dL Hct 29.2 L (34.1-44.9) % POC Hct 29.0 L (36-48) MCV 101.0 H (80.0-100.0) fL Immature Gran % (Auto) (0.0-0.5) % Lymph % (Auto) 14.8 L (15.5-49.0) % Lymph # (Auto) 1.45 L (1.50-4.80) K/mcL Evans # (Auto) 0.99 H (0.10-0.90) K/mcL Immature Gran # (0.00-0.05) K/mcl Absolute Neutrophils (1.80-8.00) K/mcL D-Dimer (0.27-0.50) ug/mL POC BUN 46 H (6-20) BUN 48 H (8-23) mg/dL Creatinine 3.0 H (0.6-1.1) mg/dL POC Creatinine 3.5 H (0.6-1.2) POC Glucose (70-105) AST (<32) U/L ALT (<40) U/L Alkaline Phosphatase (39-117) U/L NT-Pro-B Natriuret Pep (<125.0) pg/mL Urine Protein (Negative) mg/dL Urine RBC (0-3) /hpf Urine WBC (0-4) /hpf Urine Bacteria (0) /hpf Urine Mucus (None) /hpf U [place] Prot/Creat Ratio (<0.20) 05/29/22 Range/Units 11:29 RBC (3.59-5.38) M/mcL Hgb (11.2-15.7) g/dL Hct (34.1-44.9) % POC Hct (36-48) MCV (80.0-100.0) fL Immature Gran % (Auto) (0.0-0.5) % Lymph % (Auto) (15.5-49.0) % Lymph # (Auto) (1.50-4.80) K/mcL Evans # (Auto) (0.10-0.90) K/mcL Immature Gran # (0.00-0.05) K/mcl Absolute Neutrophils (1.80-8.00) K/mcL D-Dimer (0.27-0.50) ug/mL POC BUN (6-20) BUN (8-23) mg/dL Creatinine (0.6-1.1) mg/dL POC Creatinine (0.6-1.2) POC Glucose (70-105) AST (<32) U/L ALT (<40) U/L Alkaline Phosphatase (39-117) U/L NT-Pro-B Natriuret Pep (<125.0) pg/mL Urine Protein (Negative) mg/dL Urine RBC (0-3) /hpf Urine WBC (0-4) /hpf Urine Bacteria (0) /hpf Urine Mucus (None) /hpf U [place] Prot/Creat Ratio 0.47 H (<0.20) Diabetes panel 05/28/22 05/29/22 Range/Units 17:32 05:08 Sodium 137 (133-145) mmol/L Potassium 4.3 (3.3-5.1) mmol/L Chloride 102 (96-108) mmol/L Carbon Dioxide 22 (22-30) mmol/L BUN 48 H (8-23) mg/dL Creatinine 3.0 H (0.6-1.1) mg/dL Glucose 91 (70-105) mg/dL Calcium 9.0 (8.6-10.4) mg/dL AST 36 H (<32) U/L ALT 68 H (<40) U/L Alkaline Phosphatase 124 H (39-117) U/L Total Protein 6.9 (5.9-8.4) gm/dL Albumin 3.8 (3.2-5.2) gm/dL Calcium panel 05/28/22 05/29/22 Range/Units 17:32 05:08 Calcium 9.0 (8.6-10.4) mg/dL Phosphorus 4.1 (2.5-4.5) mg/dL Albumin 3.8 (3.2-5.2) gm/dL Pituitary panel 05/29/22 Range/Units 05:08 Sodium 137 (133-145) mmol/L Potassium 4.3 (3.3-5.1) mmol/L Chloride 102 (96-108) mmol/L Carbon Dioxide 22 (22-30) mmol/L BUN 48 H (8-23) mg/dL Creatinine 3.0 H (0.6-1.1) mg/dL Glucose 91 (70-105) mg/dL Calcium 9.0 (8.6-10.4) mg/dL Adrenal panel 05/28/22 05/29/22 Range/Units 17:32 05:08 Sodium 137 (133-145) mmol/L Potassium 4.3 (3.3-5.1) mmol/L Chloride 102 (96-108) mmol/L Carbon Dioxide 22 (22-30) mmol/L BUN 48 H (8-23) mg/dL Creatinine 3.0 H (0.6-1.1) mg/dL Glucose 91 (70-105) mg/dL Calcium 9.0 (8.6-10.4) mg/dL Total Bilirubin 0.2 (0.1-1.0) mg/dL AST 36 H (<32) U/L ALT 68 H (<40) U/L Alkaline Phosphatase 124 H (39-117) U/L Total Protein 6.9 (5.9-8.4) gm/dL Albumin 3.8 (3.2-5.2) gm/dL All other labs normal. A/P Assessment and plan (1) Acute on chronic kidney failure: Status: Acute (2) Chronic anemia: Status: Acute (3) Positive fecal occult blood test: Status: Acute (4) Chronic right hip pain: Status: Acute Plan Patient has no clinical evidence of acute bleed. The drop in hemoglobin is probably related to chronic kidney disease. Most recent bowel movements have been yellow or pale without any evidence of melena or dark stools. With her element of heart failure and mild respiratory compromise there is no indication for acute endoscopy. Would treat with pantoprazole and sulcal fate because of the history of ibuprofen use and the possibility of a chronic ulcer or NSAID related gastritis. Patient can be treated for her kidney failure and heart failure. Stool should be checked for occult blood. she may have urgent endoscopy as an outpatient. I will sign off but will be available if needed. Sepsis Sepsis Identified: No Time Spent With Patient Time: Total time spent is greater than 50% in coordination of care (as documented) at patient's floor/unit and/or counseling patient:
--- NOTE | 2022-05-29 13:27 | Internal Med History&Physical ---
HPI History of Present Illness Patient information: Note initiated : 05/29/22 at 1:23 pm Service Date, if different from initiated Date: [] Patient: Luana Menon 67 y/o F admitted on 05/28/22 for kidney function eval-CHF,AF. Chief Complaint: [SOB] Chief complaint: Dyspnea History of present illness: Ms. Menon is a 67 year old F with a past medical history significant for COPD as she is a former smoker, hyperlipidemia, and glaucoma who presents to the hospital with worsening dyspnea. Of note she was instructed by her primary care physician to come to the ER for further management and evaluation after it was discovered her lab work was quite abnormal. The patient states that she was seen by her PCP last week who told her that she was anemic and also had some renal dysfunction. Instructed her to increase p.o. intake and to repeat lab work yesterday. Lab work returned and noted. Much worse as she was found to have a creatinine of 3.5. On arrival she was hemodynamically stable and afebrile however was found to be in atrial fibrillation with RVR with concerns of congestive heart failure. She received a dose of IV Lasix and given 2 doses of Lopressor 5 mg IV. Nephrology were consulted. The hospital service was asked admit the patient for further management and evaluation. Of note, the patient has not a detailed historian. She states that normally she is in good health. We do not have any recent lab work. Her last known creatinine was 1 in 2019. She states that she is not on any blood pressure medications at home however her blood pressure was in the 180s on admission. She states that she quit smoking in 2017. She lives at home with her and states that she is otherwise independent. Review of Systems All systems: reviewed and no additional remarkable complaints except as stated Constitutional Constitutional: Present as per HPI EENT Eyes: Present as per HPI; Absent blurry vision Cardiovascular Cardiovascular: Present as per HPI; Absent chest pain, dyspnea, dyspnea on exertion, leg edema or palpatations Respiratory Respiratory: Present as per HPI; Absent cough, dyspnea, dyspnea on exertion, wheezing or stridor Gastrointestinal Gastrointestinal: Present as per HPI; Absent abdominal pain, diarrhea, dysphagia, hematemesis, melena, nausea or vomiting Musculoskeletal Musculoskeletal: Present as per HPI; Absent joint swelling, limited range of motion, muscle cramps, muscle weakness or myalgias Integumentary Integumentary: Present as per HPI; Absent erythema, new lesions, rash or wounds Neurological Neurological: Present as per HPI; Absent abnormal gait, behavioral changes, focal weakness, headache(s), loss of vision, numbness, sensory deficit or syncope Endocrine Endocrine: Absent change in body appearance, fatigue or heat intolerance Hematologic/Lymphatic Hematologic/Lymphatic: Present as per HPI PFSH PFSH All Active Problems (Updated 05/29/22 @ 14:19 by Roxana Cason MD) Acute exacerbation of CHF (congestive heart failure) (Acute) COPD exacerbation (Acute) Acute hypoxemic respiratory failure (Acute) Atrial fibrillation with RVR (Acute) Positive fecal occult blood test (Acute) Chronic anemia (Acute) Acute on chronic kidney failure (Acute) Acute kidney injury (Acute) Ruptured globe of right eye (Acute) Laceration of scalp (Acute) Chronic right hip pain (Acute) Social History smoking status: Former smoker MEDS/ALLERGIES Home Medications and Allergies Home Medications Medication Instructions Recorded Confirmed Type cholecalciferol (vitamin D3) 125 125 mcg PO QDAY 10/03/20 05/28/22 History mcg (5,000 unit) tablet (Vitamin D3) multivitamin 1 tab PO QDAY 10/03/20 05/28/22 History vit C 250 mg-vit E 90 mg-zinc 40 2 tab PO QDAY 10/03/20 05/28/22 History mg-copper 1 hb-xduvju-rpnuau capsule (PreserVision AREDS-2) albuterol sulfate 90 mcg/actuation 2 puff inhalation Q4-6HP PRN 05/28/22 05/28/22 History aerosol inhaler Dyspnea fluticasone fur. 200 mcg-umeclid 1 ea inhalation QDAY 05/28/22 05/29/22 History 62.5 mcg-vilant 25 mcg inhalat.powder (Trelegy Ellipta) prednisolone acetate 1 % eye 1 drp ophthalmic (eye) QID 05/28/22 05/29/22 History drops,suspension omeprazole 20 mg capsule,delayed 20 mg PO QHS 05/29/22 05/29/22 History release rosuvastatin 5 mg tablet 5 mg PO QDAY 05/29/22 05/29/22 History Allergies Allergy/AdvReac Type Severity Reaction Status Date / Time codeine AdvReac Mild Vomiting Verified 05/29/22 00:17 [From Tylenol-Codeine #3] EXAM Constitutional Vitals: Temp Pulse Resp BP Pulse Ox O2 Del Method O2 Flow Rate 97.3 F 101 H 25 H 121/92 96 Nasal Cannula 1 05/29/22 08:02 05/29/22 13:13 05/29/22 13:13 05/29/22 10:52 05/29/22 13:13 05/29/22 13:13 05/29/22 13:13 General appearance: average body habitus Head Head exam: Present atraumatic, normal inspection and normocephalic Eye Eye exam: Present EOMI, normal appearance and PERRL; Absent conjunctival injection ENT ENT exam: Present mucous membranes dry and normal exam Neck Neck exam: Present full ROM; Absent lymphadenopathy Respiratory Respiratory exam: Present decreased breath sounds, rhonchi and wheezes; Absent CTAB or respiratory distress Cardiovascular Cardiovascular exam: Present irregular rhythm and tachycardia; Absent JVD GI/Abdominal GI/Abdominal exam: Present normal bowel sounds and soft; Absent diminished bowel sounds, distended, guarding, mass, rebound or tenderness Neurological Exam Neurological exam: Present alert, CN II-XII intact and oriented X3 Psychiatric Psychiatric exam: Present normal affect and normal mood Skin Skin exam: Present intact and warm; Absent erythema, pallor, petechiae or rash DATA Data Completed and Pending Labs: Labs from last 24 hours 05/29/22 05/29/22 05/29/22 11:29 10:00 10:00 WBC RBC Hgb Hct POC Hct MCV MCH MCHC RDW Plt Count MPV Immature Gran % (Auto) Neut % (Auto) Lymph % (Auto) Mck[place] % (Auto) Eos % (Auto) Baso % (Auto) Lymph # (Auto) Mckenzie # (Auto) Eos # (Auto) Baso # (Auto) Immature Gran # Absolute Neutrophils PT INR D-Dimer VBG Lactic Acid POC Sodium Sodium POC Potassium Potassium POC Chloride Chloride Carbon Dioxide POC Total CO2 Anion Gap POC BUN BUN Creatinine POC Creatinine GFR Calculation Glucose POC Glucose Calcium POC WB Ioniz Calcium Phosphorus Magnesium Iron TIBC Unsat Iron Binding Transferrin Transferrin % Sat Total Bilirubin Direct Bilirubin AST ALT Alkaline Phosphatase NT-Pro-B Natriuret Pep Total Protein Total Protein (PEP) Albumin Albumin (PEP) Globulin Globulin (PEP) Albumin/Globulin (PEP) Wiglr-2-Xekjofxgf Fdgrp-0-Urkonbhag Beta Globulins Gamma Globulins PEP Interpretation Urine Color Urine Appearance Urine pH Ur Specific [place] Urine Protein Urine Glucose (UA) Urine Ketones Urine Occult Blood Urine Nitrate Urine Bilirubin Urine Urobilinogen Ur Leukocyte Esterase Urine RBC Urine WBC Ur Squamous Epith Cells Urine Bacteria Urine Mucus Ur Culture Indicated? Ur Random Creatinine 42.2 U Random Total Protein 20 U [place] Prot/Creat Ratio 0.47 H Ur Random Sodium Urine Urea Nitrogen ANCA Screen Pending c-ANCA Titer Pending Anti-Proteinase 3 Pending p-ANCA Titer Pending Myeloperoxidase Ab Pending Anti-DNA Antibody Pending Glomerular Base Mem IgG Pending Complement C3 143.5 Complement C4 25.8 POC Troponin I 05/29/22 05/29/22 05/29/22 10:00 05:09 05:08 WBC 9.8 RBC 2.89 L Hgb 9.1 L Hct 29.2 L POC Hct MCV 101.0 H MCH 31.5 MCHC 31.2 RDW 13.6 Plt Count 362 MPV 10.2 Immature Gran % (Auto) 0.5 Neut % (Auto) 73.1 Lymph % (Auto) 14.8 L Mckenzie % (Auto) 10.1 Eos % (Auto) 1.0 Baso % (Auto) 0.5 Lymph # (Auto) 1.45 L Mckenzie # (Auto) 0.99 H Eos # (Auto) 0.10 Baso # (Auto) 0.05 Immature Gran # 0.05 Absolute Neutrophils 7.13 PT INR D-Dimer VBG Lactic Acid POC Sodium Sodium 137 POC Potassium Potassium 4.3 POC Chloride Chloride 102 Carbon Dioxide 22 POC Total CO2 Anion Gap 13.0 POC BUN BUN 48 H Creatinine 3.0 H POC Creatinine GFR Calculation 15 Glucose 91 POC Glucose Calcium 9.0 POC WB Ioniz Calcium Phosphorus 4.1 Magnesium 2.0 Iron TIBC Unsat Iron Binding Transferrin Transferrin % Sat Total Bilirubin Direct Bilirubin AST ALT Alkaline Phosphatase NT-Pro-B Natriuret Pep Total Protein Total Protein (PEP) Pending Albumin Albumin (PEP) Pending Globulin Globulin (PEP) Pending Albumin/Globulin (PEP) Pending Ddgeo-2-Ukghexozi Pending Vjitc-6-Lxxhtemls Pending Beta Globulins Pending Gamma Globulins Pending PEP Interpretation Pending Urine Color Urine Appearance Urine pH Ur Specific [place] Urine Protein Urine Glucose (UA) Urine Ketones Urine Occult Blood Urine Nitrate Urine Bilirubin Urine Urobilinogen Ur Leukocyte Esterase Urine RBC Urine WBC Ur Squamous Epith Cells Urine Bacteria Urine Mucus Ur Culture Indicated? Ur Random Creatinine U Random Total Protein U [place] Prot/Creat Ratio Ur Random Sodium Urine Urea Nitrogen ANCA Screen c-ANCA Titer Anti-Proteinase 3 p-ANCA Titer Myeloperoxidase Ab Anti-DNA Antibody Glomerular Base Mem IgG Complement C3 Complement C4 POC Troponin I 05/28/22 05/28/22 05/28/22 22:23 20:40 20:30 WBC RBC Hgb Hct POC Hct 29.0 L MCV MCH MCHC RDW Plt Count MPV Immature Gran % (Auto) Neut % (Auto) Lymph % (Auto) Mckenzie % (Auto) Eos % (Auto) Baso % (Auto) Lymph # (Auto) Mck[place] # (Auto) Eos # (Auto) Baso # (Auto) Immature Gran # Absolute Neutrophils PT INR D-Dimer VBG Lactic Acid 1.0 POC Sodium 138 Sodium POC Potassium 4.0 Potassium POC Chloride 105 Chloride Carbon Dioxide POC Total CO2 22.0 Anion Gap POC BUN 46 H BUN Creatinine POC Creatinine 3.5 H GFR Calculation Glucose POC Glucose 104 Calcium POC WB Ioniz Calcium 1.21 Phosphorus Magnesium Iron TIBC Unsat Iron Binding Transferrin Transferrin % Sat Total Bilirubin Direct Bilirubin AST ALT Alkaline Phosphatase NT-Pro-B Natriuret Pep Total Protein Total Protein (PEP) Albumin Albumin (PEP) Globulin Globulin (PEP) Albumin/Globulin (PEP) Xcxvc-7-Lgzuoqggx Vgqnq-5-Oheuoqpml Beta Globulins Gamma Globulins PEP Interpretation Urine Color Urine Appearance Urine pH Ur Specific [place] Urine Protein Urine Glucose (UA) Urine Ketones Urine Occult Blood Urine Nitrate Urine Bilirubin Urine Urobilinogen Ur Leukocyte Esterase Urine RBC Urine WBC Ur Squamous Epith Cells Urine Bacteria Urine Mucus Ur Culture Indicated? Ur Random Creatinine U Random Total Protein U [place] Prot/Creat Ratio Ur Random Sodium Urine Urea Nitrogen ANCA Screen c-ANCA Titer Anti-Proteinase 3 p-ANCA Titer Myeloperoxidase Ab Anti-DNA Antibody Glomerular Base Mem IgG Complement C3 Complement C4 POC Troponin I 0.05 05/28/22 05/28/22 05/28/22 19:10 19:10 19:10 WBC RBC Hgb Hct POC Hct MCV MCH MCHC RDW Plt Count MPV Immature Gran % (Auto) Neut % (Auto) Lymph % (Auto) [place] % (Auto) Eos % (Auto) Baso % (Auto) Lymph # (Auto) Mck[place] # (Auto) Eos # (Auto) Baso # (Auto) Immature Gran # Absolute Neutrophils PT INR D-Dimer VBG Lactic Acid POC Sodium Sodium POC Potassium Potassium POC Chloride Chloride Carbon Dioxide POC Total CO2 Anion Gap POC BUN BUN Creatinine POC Creatinine GFR Calculation Glucose POC Glucose Calcium POC WB Ioniz Calcium Phosphorus Magnesium Iron TIBC Unsat Iron Binding Transferrin Transferrin % Sat Total Bilirubin Direct Bilirubin AST ALT Alkaline Phosphatase NT-Pro-B Natriuret Pep Total Protein Total Protein (PEP) Albumin Albumin (PEP) Globulin Globulin (PEP) Albumin/Globulin (PEP) Tymov-0-Timawlecd Hetgx-5-Kxyemeupg Beta Globulins Gamma Globulins PEP Interpretation Urine Color Yellow Urine Appearance Clear Urine pH 5.0 Ur Specific [place] 1.019 Urine Protein 30 A Urine Glucose (UA) Negative Urine Ketones Negative Urine Occult Blood Negative Urine Nitrate Negative Urine Bilirubin Negative Urine Urobilinogen Negative Ur Leukocyte Esterase Negative Urine RBC 5 H Urine WBC 7 H Ur Squamous Epith Cells 0 Urine Bacteria Few A Urine Mucus Few A Ur Culture Indicated? Yes Ur Random Creatinine U Random Total Protein U [place] Prot/Creat Ratio Ur Random Sodium 72 Urine Urea Nitrogen 711 ANCA Screen c-ANCA Titer Anti-Proteinase 3 p-ANCA Titer Myeloperoxidase Ab Anti-DNA Antibody Glomerular Base Mem IgG Complement C3 Complement C4 POC Troponin I 05/28/22 05/28/22 05/28/22 19:10 18:02 17:32 WBC RBC Hgb Hct POC Hct MCV MCH MCHC RDW Plt Count MPV Immature Gran % (Auto) Neut % (Auto) Lymph % (Auto) [place] % (Auto) Eos % (Auto) Baso % (Auto) Lymph # (Auto) Mck[place] # (Auto) Eos # (Auto) Baso # (Auto) Immature Gran # Absolute Neutrophils PT INR D-Dimer 1.20 H VBG Lactic Acid POC Sodium Sodium POC Potassium Potassium POC Chloride Chloride Carbon Dioxide POC Total CO2 Anion Gap POC BUN BUN Creatinine POC Creatinine GFR Calculation Glucose POC Glucose Calcium POC WB Ioniz Calcium Phosphorus Magnesium Iron 42 TIBC 242 Unsat Iron Binding 200 Transferrin Pending Transferrin % Sat 17 Total Bilirubin Direct Bilirubin AST ALT Alkaline Phosphatase NT-Pro-B Natriuret Pep Total Protein Total Protein (PEP) Albumin Albumin (PEP) Globulin Globulin (PEP) Albumin/Globulin (PEP) Fzcpo-9-Ifozfuxtr Stbsf-8-Euesczbon Beta Globulins Gamma Globulins PEP Interpretation Urine Color Urine Appearance Urine pH Ur Specific [place] Urine Protein Urine Glucose (UA) Urine Ketones Urine Occult Blood Urine Nitrate Urine Bilirubin Urine Urobilinogen Ur Leukocyte Esterase Urine RBC Urine WBC Ur Squamous Epith Cells Urine Bacteria Urine Mucus Ur Culture Indicated? Ur Random Creatinine 80.3 U Random Total Protein U [place] Prot/Creat Ratio Ur Random Sodium Urine Urea Nitrogen ANCA Screen c-ANCA Titer Anti-Proteinase 3 p-ANCA Titer Myeloperoxidase Ab Anti-DNA Antibody Glomerular Base Mem IgG Complement C3 Complement C4 POC Troponin I 05/28/22 05/28/22 05/28/22 17:32 17:32 17:32 WBC RBC Hgb Hct POC Hct 33.0 L MCV MCH MCHC RDW Plt Count MPV Immature Gran % (Auto) Neut % (Auto) Lymph % (Auto) Mck[place] % (Auto) Eos % (Auto) Baso % (Auto) Lymph # (Auto) Mck[place] # (Auto) Eos # (Auto) Baso # (Auto) Immature Gran # Absolute Neutrophils PT 13.5 INR 1.0 D-Dimer VBG Lactic Acid POC Sodium 138 Sodium POC Potassium 4.4 Potassium POC Chloride 106 Chloride Carbon Dioxide POC Total CO2 24.0 Anion Gap POC BUN 47 H BUN Creatinine POC Creatinine 3.4 H GFR Calculation Glucose POC Glucose 111 H Calcium POC WB Ioniz Calcium 1.18 Phosphorus Magnesium Iron TIBC Unsat Iron Binding Transferrin Transferrin % Sat Total Bilirubin Direct Bilirubin AST ALT Alkaline Phosphatase NT-Pro-B Natriuret Pep 45332.0 H Total Protein Total Protein (PEP) Albumin Albumin (PEP) Globulin Globulin (PEP) Albumin/Globulin (PEP) Kspsh-8-Xtnydxyqc Xgnpr-9-Xttibnpim Beta Globulins Gamma Globulins PEP Interpretation Urine Color Urine Appearance Urine pH Ur Specific [place] Urine Protein Urine Glucose (UA) Urine Ketones Urine Occult Blood Urine Nitrate Urine Bilirubin Urine Urobilinogen Ur Leukocyte Esterase Urine RBC Urine WBC Ur Squamous Epith Cells Urine Bacteria Urine Mucus Ur Culture Indicated? Ur Random Creatinine U Random Total Protein U [place] Prot/Creat Ratio Ur Random Sodium Urine Urea Nitrogen ANCA Screen c-ANCA Titer Anti-Proteinase 3 p-ANCA Titer Myeloperoxidase Ab Anti-DNA Antibody Glomerular Base Mem IgG Complement C3 Complement C4 POC Troponin I 05/28/22 05/28/22 17:32 17:32 WBC 10.6 RBC 3.10 L Hgb 9.6 L Hct 31.0 L POC Hct MCV 100.0 MCH 31.0 MCHC 31.0 RDW 14.0 Plt Count 423 MPV 10.1 Immature Gran % (Auto) 0.8 H Neut % (Auto) 76.3 Lymph % (Auto) 12.0 L Mck[place] % (Auto) 9.7 Eos % (Auto) 0.8 Baso % (Auto) 0.4 Lymph # (Auto) 1.27 L M[place] # (Auto) 1.03 H Eos # (Auto) 0.08 Baso # (Auto) 0.04 Immature Gran # 0.09 H Absolute Neutrophils 8.09 H PT INR D-Dimer VBG Lactic Acid POC Sodium Sodium POC Potassium Potassium POC Chloride Chloride Carbon Dioxide POC Total CO2 Anion Gap POC BUN BUN Creatinine POC Creatinine GFR Calculation Glucose POC Glucose Calcium POC WB Ioniz Calcium Phosphorus Magnesium Iron TIBC Unsat Iron Binding Transferrin Transferrin % Sat Total Bilirubin 0.2 Direct Bilirubin < 0.2 AST 36 H ALT 68 H Alkaline Phosphatase 124 H NT-Pro-B Natriuret Pep Total Protein 6.9 Total Protein (PEP) Albumin 3.8 Albumin (PEP) Globulin 3.1 Globulin (PEP) Albumin/Globulin (PEP) Dkoke-8-Gzfhyharm Pywxi-8-Unzlmltto Beta Globulins Gamma Globulins PEP Interpretation Urine Color Urine Appearance Urine pH Ur Specific [place] Urine Protein Urine Glucose (UA) Urine Ketones Urine Occult Blood Urine Nitrate Urine Bilirubin Urine Urobilinogen Ur Leukocyte Esterase Urine RBC Urine WBC Ur Squamous Epith Cells Urine Bacteria Urine Mucus Ur Culture Indicated? Ur Random Creatinine U Random Total Protein U [place] Prot/Creat Ratio Ur Random Sodium Urine Urea Nitrogen ANCA Screen c-ANCA Titer Anti-Proteinase 3 p-ANCA Titer Myeloperoxidase Ab Anti-DNA Antibody Glomerular Base Mem IgG Complement C3 Complement C4 POC Troponin I Preliminary micro results at discharge 05/28/22 19:10 Urine Culture - Preliminary Urine - Clean Void Mid-Stream Enterococcus species A/P Assessment and plan (1) Positive fecal occult blood test: Status: Acute (2) Chronic anemia: Status: Acute (3) Acute on chronic kidney failure: Status: Acute (4) Atrial fibrillation with RVR: Status: Acute (5) Acute hypoxemic respiratory failure: Status: Acute (6) COPD exacerbation: Status: Acute (7) Acute exacerbation of CHF (congestive heart failure): Status: Acute Narrative A/P Narrative: The patient comes in with acute hypoxemic respiratory failure that is likely in the setting of COPD exacerbation versus congestive heart failure exacerbation. She is a former smoker and has a productive cough. She has rhonchorous breath sounds and end expiratory wheezing on auscultation. She does not appear to be overtly clinically hypervolemic. We have started DuoNebs, Pulmicort, ceftriaxone/Zithromax as well as Solu-Medrol. In terms of her heart failure due to underlying tachyarrhythmia, we will continue Lasix 80 mg IV twice daily. She has been started on Lopressor 25 mg p.o. twice daily and hydralazine 10 mg p.o. 3 times daily for afterload reduction. We will follow-up on her TTE. The patient will be on Lovenox for anticoagulation. Time Spent With Patient Time: Total time spent is greater than 50% in coordination of care (as documented) at patient's floor/unit and/or counseling patient: Subsequent: Total time with patient: 50 - 65 Minutes QUALITY VTE Deep Vein Thrombosis/Pulmonary Embolism Present on Admission: No
[2022-05-29] MEDS: ACETAMINOPHEN 500 MG TABLET PO PRN ×2 (14:17→21:45)
[2022-05-29] MEDS: OMEPRAZOLE 20 MG CAPSULE PO SCH (17:55)
--- NOTE | 2022-05-29 17:56 | Cat Scan Report ---
CLINICAL INFORMATION: Dyspnea COMPARISON: CT 06/30/2021 TECHNIQUE: 0.625 mm axial slices were obtained from the lung apices through the bases without intravenous contrast. 2.5 mm Sagittal, coronal and axial reformatted images were processed and reviewed at bone, lung and soft tissue windows. 7 mm axial MIP images were also reconstructed to optimize pulmonary nodule detection.The exam was performed using radiation dose optimization techniques including, but not limited to, automated exposure control, adjustment of the mA and/or kV according to patient size and use of iterative reconstruction technique. FINDINGS: Pulmonary parenchymal windows show moderate centrilobular emphysema featuring chronic bronchitis with elevated lung biopsy wall thickening/dilatation of bronchi. Multiple small bullae are predominantly within the upper lobes-as previously seen. Moderate bilateral pleural effusion with subsegmental compressive atelectasis in the posterior lower lobes appreciated. There is also subsegmental atelectasis of the lingula.. Mild interlobular septal edema and groundglass edema is seen in the periphery of both lungs compatible with congestive heart failure. Mediastinal windows show generalized increase in the pulmonary artery diameter compatible with congestion. The heart is mildly enlarged with new small pericardial effusion. This is new from the previous study. No calcific plaque is appreciated the coronary arteries. The noncontrast thoracic aorta is normal. There is no adenopathy in the mediastinal, hilar or axillary region. Esophagus is grossly normal. The thyroid is unremarkable. Bone windows show no osseous abnormality. Soft tissues the chest wall are normal. Images should the superior abdomen show no abnormality. No IMPRESSION: 1. Moderate congestive heart failure. 2. Moderate bilateral pleural effusions was subsegmental compressive atelectasis in the posterior lower lobes and lingula. 3. Moderate centrilobular emphysema. Interpreted and Authenticated by: Reji Boss 05/29/22
[2022-05-29] MEDS: SENNOSIDES 1 TABLET PO SCH (20:03)
[2022-05-29] MEDS: METOPROLOL TARTRATE 5 MG/5 ML VIAL IV SCH ×4 (22:59→23:32)
[2022-05-30] MEDS: IPRATROPIUM/ALBUTEROL 3 ML AMPUL.NEB NEB SCH ×4 (00:32→19:07)
[2022-05-30] MEDS: 0.9 % SODIUM CHLORIDE 10 ML SYRINGE IV SCH ×3 (05:05→20:42)
[2022-05-30] MEDS: BUDESONIDE 0.5 MG/2 ML AMPUL.NEB NEB SCH ×2 (07:20→19:07)
[2022-05-30] MEDS ORDERED: OMEPRAZOLE 20 MG CAPSULE PO SCH (07:30)
[2022-05-30] MEDS: OMEPRAZOLE 20 MG CAPSULE PO SCH (07:34)
--- NOTE | 2022-05-30 08:17 | EKG ---
Located Within [facility] Test Date: 2022-05-28 Pat Name: Luana Menon Department: ED Room: Gender: Female Weight Analyst: UMA : 1955 Requested By: Rivera Sanders Order Number: [id number] Reading MD: Norm Talavera Measurements Intervals [place] Rate: 86 P: 75 CA: 174 QRS: 66 QRSD: 92 T: 62 QT: 401 QTc: 481 Interpretive Statements Sinus rhythm Probable left atrial enlargement Electronically Signed On 05-30-2022 8:16:55 PDT by Norm Talavera /store/M0/[id number]
[2022-05-30 08:42] LABS: Basophils # (Auto) 0.04 K/mcL (0.00-0.30); Basophils % (Auto) 0.3 % (0.0-2.0); Eosinophils # (Auto) 0.04 K/mcL (0.00-0.70); Eosinophils % (Auto) 0.3 % (0.0-7.0); Hematocrit 30.3 % (34.1-44.9); Hemoglobin 9.7 g/dL (11.2-15.7); Lymphocytes # (Auto) 1.83 K/mcL (1.50-4.80); Lymphocytes % (Auto) 14.6 % (15.5-49.0); Mean Cell Volume 96.2 fL (80.0-100.0); Mean Platelet Volume 10.2 fL (8.8-12.5); Monocytes # (Auto) 1.15 K/mcL (0.10-0.90); Monocytes % (Auto) 9.2 % (1.0-12.0); Neutrophils % (Auto) 75.1 % (38.0-78.0); Platelet Count 424 K/mcL (140-440); RBC 3.15 M/mcL (3.59-5.38); Red Cell Distribution Width 13.7 % (11.5-14.5); WBC 12.5 K/mcL (4.5-11.0)
[2022-05-30] MEDS: ENOXAPARIN 80 MG/0.8 ML SYRINGE SQ SCH ×2 (08:43→20:55)
[2022-05-30] MEDS: AZITHROMYCIN 250 MG TABLET PO SCH (08:43)
[2022-05-30] MEDS: METOPROLOL SUCCINATE 25 MG TAB.XL.24H PO SCH (08:44)
[2022-05-30] MEDS: DOCUSATE SODIUM 100 MG CAPSULE PO SCH ×2 (08:44→20:55)
[2022-05-30] MEDS: predniSONE 20 MG TABLET PO SCH (08:44)
[2022-05-30] MEDS: hydrALAZINE 10 MG TABLET PO SCH ×3 (08:44→20:55)
[2022-05-30] MEDS ORDERED: METOPROLOL TARTRATE 5 MG/5 ML VIAL IV ONE (08:51)
[2022-05-30] MEDS ORDERED: METOPROLOL SUCCINATE 25 MG TAB.XL.24H PO SCH (09:00)
[2022-05-30] MEDS ORDERED: VANCOMYCIN PER PHARMACY IV SCH (09:00)
[2022-05-30 09:10] LABS: Blood Urea Nitrogen 57 mg/dL (8-23); Calcium 9.1 mg/dL (8.6-10.4); Carbon Dioxide 22 mmol/L (22-30); Chloride 93 mmol/L (96-108); Glomerular Filtration Rate 14; Glucose 93 mg/dL (70-105)
--- NOTE | 2022-05-30 09:16 | Nephrology Progress Note ---
SUBJECTIVE Subjective Patient information: Note initiated : 05/30/22 at 9:14 am Patient: Luana Menon 67 y/o F admitted on 05/28/22 for kidney function eval-CHF,AF. Chief Complaint: Abnormal labs. Pertinent ROS: Chronic back pain Atrial fibrillation with RVR Constitutional Vitals: Vital Signs Temp Pulse Resp BP Pulse Ox O2 Del Method O2 Flow Rate 98.5 F 82 22 136/88 98 Nasal Cannula 2 05/30/22 04:01 05/30/22 07:41 05/30/22 07:41 05/30/22 06:00 05/30/22 07:41 05/30/22 07:41 05/30/22 07:41 Period Temp Pulse Resp BP Sys/Armendariz Pulse Ox O2 Del Method O2 Flow Rate Last 24 Hr 98.0 F-99.2 F 75-146 17-48 111-147/70-110 86-100 Nasal Cannula-Nasal Cannula 1-3 Intake and Output 05/29/22 05/30/22 05/30/22 19:59 03:59 11:59 Intake Total 240 750 Output Total 1450 1250 550 Balance -1210 -500 -550 Weight 169 lb 4.8 oz Intake & Output: Intake & Output 05/29/22 05/30/22 05/30/22 19:59 03:59 11:59 Intake Total 240 750 Output Total 1450 1250 550 Balance -1210 -500 -550 Weight 169 lb 4.8 oz Intake: Oral 240 750 Output: Void Amount 1450 1250 550 Other: Meal Dinner Percent of Meal Consumed 100% Feeding Ability Independent Urine Appearance Clear Clear Clear Urine Color Yellow Yellow Yellow Pale Urine Odor Normal Normal Normal General appearance: cooperative and no acute distress Head Head exam: Present normal inspection Eye Eye exam: Present normal appearance ENT ENT exam: Present mucous membranes moist Respiratory Respiratory exam: Absent respiratory distress Cardiovascular Cardiovascular exam: Present normal rate and rhythm GI/Abdominal GI/Abdominal exam: Present soft; Absent tenderness Extremities Exam Extremities exam: Absent joint swelling or pedal edema Neurological Exam Neurological exam: Present alert and oriented X3 Psychiatric Psychiatric exam: Present normal affect and normal mood Skin Skin exam: Present warm; Absent rash A/P Assessment and plan (1) Acute kidney injury: Assessment and plan: Luana Menon is a 67-year-old female sent to ED by her PCP for elevated serum creatinine. Her serum creatinine was elevated a week ago and failed to improve. In ED, her workup was also significant for anemia, CHF and atrial fibrillation. Nephrology consultation was requested for acute kidney injury. Acute kidney injury, present on arrival. There is no recent history of IV contrast administration. Intravascular volume depletion unlikely. She had heavy NSAID use for about 3 months until April 2022. Work up: Urinalysis on 05/28/22: Yellow, Clear, pH 5.0, SG 1.019, protein 30, blood negative, leukocyte esterase negative, culture pending. Urine Sodium on 05/28/22: 72 mmol/L. Renal US on 05/28/22: Normal renal ultrasound. Random urine protein/creatinine ratio on 05/29/22: 470 mg/g creatinine. Labs on 05/29/22: C3 143.5, C4 25.8. SPEP, dsDNA Ab, ANCA screen, anti-GBM Ab ordered on 05/29/22. Progress: Serum creatinine changed from 3.0 to 3.3 in the past 24 hours. Baseline serum creatinine: 1.0 on 10/03/20, no labs since then. Urine output: 4200 ml reported in the past 24 hours. Hyponatremia, new, mild. No uremic symptoms. Recommendations/Plan: No acute hemodialysis need. Avoid NSAIDs, nephrotoxic medications and IV contrast. Monitor BMP and urine output. Status: Acute Time Spent With Patient Time: Total time spent is greater than 50% in coordination of care (as documented) at patient's floor/unit and/or counseling patient:
[2022-05-30 09:31] LABS: Phosphorous 3.8 mg/dL (2.5-4.5)
[2022-05-30] MEDS ORDERED: CALCIUM CARBONATE 500 MG TAB.CHEW CHEWED PRN (09:51)
--- NOTE | 2022-05-30 09:51 | Internal Med Progress Note ---
SUBJECTIVE Subjective Patient information: Note initiated : 05/30/22 at 9:45 am Service Date, if different from initiated Date: [] Patient: Luana Menon 67 y/o F admitted on 05/28/22 for kidney function eval-CHF,AF. Chief Complaint: [Lab abnormalities, sent by PCP] Principal diagnosis: Dyspnea Interval history: Chief complaint: Dyspnea History of present illness: Ms. Menon is a 67 year old F with a past medical history significant for COPD as she is a former smoker, hyperlipidemia, and glaucoma who presents to the hospital with worsening dyspnea. Of note she was instructed by her primary care physician to come to the ER for further management and evaluation after it was discovered her lab work was quite abnormal. The patient states that she was seen by her PCP last week who told her that she was anemic and also had some renal dysfunction. Instructed her to increase p.o. intake and to repeat lab work yesterday. Lab work returned and noted. Much worse as she was found to have a creatinine of 3.5. On arrival she was hemodynamically stable and afebrile however was found to be in atrial fibrillation with RVR with concerns of congestive heart failure. She received a dose of IV Lasix and given 2 doses of Lopressor 5 mg IV. Nephrology were consulted. The hospital service was asked admit the patient for further management and evaluation. Of note, the patient has not a detailed historian. She states that normally she is in good health. We do not have any recent lab work. Her last known cre atinine was 1 in 2019. She states that she is not on any blood pressure medications at home however her blood pressure was in the 180s on admission. She states that she quit smoking in 2016. She lives at home with her and states that she is otherwise independent. 05/30: The patient was feeling much better today. Unfortunately she went back into A-fib with RVR. Discussed the case with RN. Constitutional Vitals: Vital Signs Temp Pulse Resp BP Pulse Ox O2 Del Method O2 Flow Rate 98.5 F 82 22 136/88 98 Nasal Cannula 2 05/30/22 04:01 05/30/22 07:41 05/30/22 07:41 05/30/22 06:00 05/30/22 07:41 05/30/22 07:41 05/30/22 07:41 Period Temp Pulse Resp BP Sys/Armendariz Pulse Ox O2 Del Method O2 Flow Rate Last 24 Hr 98.0 F-99.2 F 75-146 17-48 111-147/70-110 91-100 Nasal Cannula-Nasal Cannula 1-3 Intake and Output 05/29/22 05/30/22 05/30/22 19:59 03:59 11:59 Intake Total 240 750 Output Total 1450 1250 550 Balance -1210 -500 -550 Weight 76.793 kg Intake & Output: Intake & Output 05/29/22 05/30/22 05/30/22 19:59 03:59 11:59 Intake Total 240 750 Output Total 1450 1250 550 Balance -1210 -500 -550 Weight 76.793 kg Intake: Oral 240 750 Output: Void Amount 1450 1250 550 Other: Meal Dinner Percent of Meal Consumed 100% Feeding Ability Independent Urine Appearance Clear Clear Clear Urine Color Yellow Yellow Yellow Pale Urine Odor Normal Normal Normal General appearance: cooperative and no acute distress Head Head exam: Present normal inspection Eye Eye exam: Present normal appearance ENT ENT exam: Present mucous membranes moist Respiratory Respiratory exam: Present normal respiratory exam and CTAB; Absent accessory muscle use or respiratory distress Cardiovascular Cardiovascular exam: Present irregular rhythm and tachycardia GI/Abdominal GI/Abdominal exam: Present soft; Absent tenderness Extremities Exam Extremities exam: Absent joint swelling or pedal edema Neurological Exam Neurological exam: Present alert and oriented X3 Psychiatric Psychiatric exam: Present normal affect and normal mood Skin Skin exam: Present warm; Absent rash OBJ DATA Labs 05/30/22 08:04 05/30/22 08:04 Labs: Abnormal Lab Results 05/30/22 05/30/22 05/29/22 08:04 08:04 11:29 WBC 12.5 H RBC 3.15 L Hgb 9.7 L Hct 30.3 L POC Hct MCV Immature Gran % (Auto) Lymph % (Auto) 14.6 L Lymph # (Auto) [place] # (Auto) 1.15 H Immature Gran # 0.06 H Absolute Neutrophils 9.41 H D-Dimer Sodium 130 L Chloride 93 L POC BUN BUN 57 H Creatinine 3.3 H POC Creatinine POC Glucose AST ALT Alkaline Phosphatase NT-Pro-B Natriuret Pep Urine Protein Urine RBC Urine WBC Urine Bacteria Urine Mucus U [place] Prot/Creat Ratio 0.47 H 05/29/22 05/29/22 05/28/22 05:09 05:08 20:40 WBC RBC 2.89 L Hgb 9.1 L Hct 29.2 L POC Hct 29.0 L MCV 101.0 H Immature Gran % (Auto) Lymph % (Auto) 14.8 L Lymph # (Auto) 1.45 L [place] # (Auto) 0.99 H Immature Gran # Absolute Neutrophils D-Dimer Sodium Chloride POC BUN 46 H BUN 48 H Creatinine 3.0 H POC Creatinine 3.5 H POC Glucose AST ALT Alkaline Phosphatase NT-Pro-B Natriuret Pep Urine Protein Urine RBC Urine WBC Urine Bacteria Urine Mucus U [place] Prot/Creat Ratio 05/28/22 05/28/22 05/28/22 19:10 17:32 17:32 WBC RBC Hgb Hct POC Hct MCV Immature Gran % (Auto) Lymph % (Auto) Lymph # (Auto) [place] # (Auto) Immature Gran # Absolute Neutrophils D-Dimer 1.20 H Sodium Chloride POC BUN BUN Creatinine POC Creatinine POC Glucose AST ALT Alkaline Phosphatase NT-Pro-B Natriuret Pep 49520.0 H Urine Protein 30 A Urine RBC 5 H Urine WBC 7 H Urine Bacteria Few A Urine Mucus Few A U [place] Prot/Creat Ratio 05/28/22 05/28/22 05/28/22 17:32 17:32 17:32 WBC RBC 3.10 L Hgb 9.6 L Hct 31.0 L POC Hct 33.0 L MCV Immature Gran % (Auto) 0.8 H Lymph % (Auto) 12.0 L Lymph # (Auto) 1.27 L [place] # (Auto) 1.03 H Immature Gran # 0.09 H Absolute Neutrophils 8.09 H D-Dimer Sodium Chloride POC BUN 47 H BUN Creatinine POC Creatinine 3.4 H POC Glucose 111 H AST 36 H ALT 68 H Alkaline Phosphatase 124 H NT-Pro-B Natriuret Pep Urine Protein Urine RBC Urine WBC Urine Bacteria Urine Mucus U [place] Prot/Creat Ratio Meds: Medications Acetaminophen (Acetaminophen 500 Mg Tablet) 1,000 mg PO Q8HP PRN; Protocol PRN Reason: Per Pain Protocol Last Admin: 05/29/22 21:45 Dose: 1,000 mg Al Hydrox/Mg Hydrox/Simethicone (Mag Hydrox/Al Hydrox/Simeth 30 Ml Oral.Susp) 30 ml PO Q4HP PRN PRN Reason: Dyspepsia Last Admin: 05/29/22 10:03 Dose: 30 ml Albuterol/Ipratropium (Ipratropium/Albuterol 3 Ml Ampul.Neb) 3 ml NEB Q6HRT [facility] Last Admin: 05/30/22 07:20 Dose: 3 ml Azithromycin (Azithromycin 250 Mg Tablet) 250 mg PO DAILY [facility]; Protocol Stop: 06/01/22 09:01 Last Admin: 05/30/22 08:43 Dose: 250 mg Budesonide (Budesonide 0.5 Mg/2 Ml Ampul.Neb) 0.5 mg NEB Q12 [facility] Last Admin: 05/30/22 07:20 Dose: 0.5 mg Docusate Sodium (Docusate Sodium 100 Mg Capsule) 100 mg PO BID [facility] Last Admin: 05/30/22 08:44 Dose: 100 mg Enoxaparin Sodium (Enoxaparin 80 Mg/0.8 Ml Syringe) 80 mg SQ BID [facility] Last Admin: 05/30/22 08:43 Dose: 80 mg Hydralazine HCl (Hydralazine 10 Mg Tablet) 10 mg PO TID [facility] Last Admin: 05/30/22 08:44 Dose: Not Given Vancomycin HCl 1,000 mg/ (Sodium Chloride) 250 mls @ 250 mls/hr IV ONCE ONE Stop: 05/30/22 10:59 Last Admin: 05/30/22 08:52 Dose: 250 mls/hr Lactulose (Lactulose 20 Gm/30 Ml Oral.Edda) 10 gm PO DAILYP PRN PRN Reason: Constipation Metoprolol Succinate (Metoprolol Succinate 25 Mg Tab.Xl.24h) 50 mg PO BID [facility] Last Admin: 05/30/22 09:06 Dose: 50 mg Omeprazole (Omeprazole 20 Mg Capsule) 40 mg PO ACB [facility] Last Admin: 05/30/22 07:34 Dose: 40 mg Ondansetron HCl (Ondansetron 4 Mg/2 Ml Vial) 4 mg IV Q4HP PRN; Protocol PRN Reason: Nausea And Vomiting Prednisone (Prednisone 20 Mg Tablet) 40 mg PO QAMCC [facility] Last Admin: 05/30/22 08:44 Dose: 40 mg Senna (Sennosides 1 Tablet) 2 tab PO HSP PRN PRN Reason: Constipation Senna (Sennosides 1 Tablet) 2 tab PO HS [facility] Last Admin: 05/29/22 20:03 Dose: Not Given Sodium Chloride (0.9 % Sodium Chloride 10 Ml Syringe) 10 ml IV Q8 [facility] Last Admin: 05/30/22 05:05 Dose: 10 ml Sucralfate (Sucralfate 1 Gm/10 Ml Oral.Susp) 1 gm PO TIDAC [place] Vancomycin HCl (Vancomycin Per Pharmacy) 1 order IV UD [facility]; Protocol A/P Assessment and plan (1) Positive fecal occult blood test: Status: Acute (2) Chronic anemia: Status: Acute (3) Acute on chronic kidney failure: Status: Acute (4) Atrial fibrillation with RVR: Status: Acute (5) Acute hypoxemic respiratory failure: Status: Acute (6) COPD exacerbation: Status: Acute (7) Acute exacerbation of CHF (congestive heart failure): Status: Acute Narrative A/P Narrative: The patient comes in with acute hypoxemic respiratory failure that is likely in the setting of COPD exacerbation versus congestive heart failure exacerbation. She is a former smoker and has a productive cough. She has rhonchorous breath sounds and end expiratory wheezing on auscultation. She does not appear to be overtly clinically hypervolemic. We have started DuoNebs, Pulmicort, ceftriaxone/Zithromax as well as Solu-Medrol. In terms of her heart failure due to underlying tachyarrhythmia, we will continue Lasix 80 mg IV twice daily. She has been started on Lopressor 25 mg p.o. twice daily and hydralazine 10 mg p.o. 3 times daily for afterload reduction. We will follow-up on her TTE. The patient will be on Lovenox for anticoagulation. #Acute hypoxemic respiratory failure -2/2 shunting (pulm edema, COPD, pleural effusions, atelectasis) -Continue supplemental O2 sat >92% #Acute congestive heart failure -2/2 uncontrolled HTN and tachyarrhythmia. No evidence of acute ischemia -DDx: valvular disease, ischemia -Investigations: TTE results pending -Tx: Lasix 80mg IV/bid-> switch to 40mg IV/bid -Monitor Is/Os, daily weight, daily BMP #AF w/ RVR -uptitrated lopressor to 50mg PO bid, and given 5mg IV x 1 this morning -continue therapeutic lovenox, and may consider switching to Eliquis in the setting of renal dysfunction #Bilateral pleural effusions -Seen on CT chest -Continue tx as above #AECOPD -Patient is former smoker and had productive cough and wheezing on admission -Continue duonebs, pulmicort, pred, zithromax #Anemia -Occult stool positive -Dr. Sanders recommends f/u and no need for endoscopy at this time -Continue PPI and sucralfate #Enterococcal UTI -Urine cx returned positive, started empiric Vanco Time Spent With Patient Time: Total time spent is greater than 50% in coordination of care (as documented) at patient's floor/unit and/or counseling patient: Subsequent: Total time with patient: 35 - 49 minutes QUALITY VTE Deep Vein Thrombosis/Pulmonary Embolism Present on Admission: No
[2022-05-30] MEDS ORDERED: VANCOMYCIN 1,000 MG in 0.9 % SODIUM CHLORIDE 250 ML IV ONE (10:00)
[2022-05-30] MEDS: ACETAMINOPHEN 500 MG TABLET PO PRN ×2 (10:14→19:31)
[2022-05-30] MEDS: DILTIAZEM 125 MG in DEXTROSE 5% IN WATER 100 ML IV SCH (10:21)
[2022-05-30] MEDS: SUCRALFATE 1 GM/10 ML ORAL.SUSP PO SCH ×2 (11:52→17:29)
--- NOTE | 2022-05-30 14:01 | Internal Med Progress Note ---
SUBJECTIVE Subjective Patient information: Note initiated : 05/30/22 at 1:58 pm Service Date, if different from initiated Date: [] Patient: Luana Menon 67 y/o F admitted on 05/28/22 for kidney function eval-CHF,AF. Chief Complaint: [] Principal diagnosis: Dyspnea Interval history: Chief complaint: Dyspnea History of present illness: Ms. Menon is a 67 year old F with a past medical history significant for COPD as she is a former smoker, hyperlipidemia, and glaucoma who presents to the hospital with worsening dyspnea. Of note she was instructed by her primary care physician to come to the ER for further management and evaluation after it was discovered her lab work was quite abnormal. The patient states that she was seen by her PCP last week who told her that she was anemic and also had some renal dysfunction. Instructed her to increase p.o. intake and to repeat lab work yesterday. Lab work returned and noted. Much worse as she was found to have a creatinine of 3.5. On arrival she was hemodynamically stable and afebrile however was found to be in atrial fibrillation with RVR with concerns of congestive heart failure. She received a dose of IV Lasix and given 2 doses of Lopressor 5 mg IV. Nephrology were consulted. The hospital service was asked admit the patient for further management and evaluation. Of note, the patient has not a detailed historian. She states that normally she is in good health. We do not have any recent lab work. Her last known creatinine was 1 in 2019. She states that she is not on any blood pressure medications at home however her blood pressure was in the 180s on admission. She states that she quit smoking in 2016. She lives at home with her a nd states that she is otherwise independent. 05/30: The patient was feeling much better today. Unfortunately she went back into A-fib with RVR. Discussed the case with RN. 05/31 Review of Systems: denies headache/fever/chills/nausea/vomiting/chest or abdominal pain/cough/dyspnea/diarrhea. Otherwise see above. PHYSICAL EXAM General: Alert, Awake, No acute Distress Eyes/N/T: EOMI, no scleral icterus, Head/Neck: neck supple, full ROM, CV: RRR, No murmurs, Pulm: Clear b/l, no wheezing/rhonchi/rales, no respiratory distress Abd: soft, nontender, +BS x4 Ext: no clubbing/cyanosis/edema, nontender Neuro: Alert, no focal deficits, moves all extremities, sensations intact b/l upper/lower Psychiatric: Skin: warm/dry, normal color Constitutional Vitals: Vital Signs Temp Pulse Resp BP Pulse Ox O2 Del Method O2 Flow Rate 97.7 F 72 30 H 106/56 92 Nasal Cannula 2 05/30/22 11:40 05/30/22 13:30 05/30/22 13:30 05/30/22 13:27 05/30/22 13:30 05/30/22 13:17 05/30/22 13:17 Period Temp Pulse Resp BP Sys/Armendariz Pulse Ox O2 Del Method O2 Flow Rate Last 24 Hr 97.7 F-99.2 F 20-156 13-48 106-147/56-110 82-100 Nasal Cannula-Nasal Cannula 2-3 Intake and Output 05/30/22 05/30/22 05/30/22 03:59 11:59 19:59 Intake Total 750 1205 29 Output Total 1250 1150 Balance -500 55 29 Weight 76.793 kg 76.793 kg Patient Weight 05/31/22 03:59 Weight 76.793 kg Intake & Output: Intake & Output 05/30/22 05/30/22 05/30/22 03:59 11:59 19:59 Intake Total 750 1205 29 Output Total 1250 1150 Balance -500 55 29 Weight 76.793 kg 76.793 kg Intake: IV 5 29 Cardizem 125 mg In Dextrose 5% 5 29 in Water 100 ml @ 5 MG/HR 5 mls /hr IV Q24H [facility] Rx#:[id number] Oral 750 1200 Output: Void Amount 1250 1150 Other: Meal Breakfast Lunch Percent of Meal Consumed 100% 100% Feeding Ability Independent Urine Appearance Clear Clear Urine Color Yellow Yellow Pale Urine Odor Normal Normal OBJ DATA Labs 05/30/22 08:04 05/30/22 08:04 Labs: Abnormal Lab Results 05/30/22 05/30/22 05/29/22 08:04 08:04 11:29 WBC 12.5 H RBC 3.15 L Hgb 9.7 L Hct 30.3 L POC Hct MCV Immature Gran % (Auto) Lymph % (Auto) 14.6 L Lymph # (Auto) [place] # (Auto) 1.15 H Immature Gran # 0.06 H Absolute Neutrophils 9.41 H D-Dimer Sodium 130 L Chloride 93 L POC BUN BUN 57 H Creatinine 3.3 H POC Creatinine POC Glucose AST ALT Alkaline Phosphatase NT-Pro-B Natriuret Pep Urine Protein Urine RBC Urine WBC Urine Bacteria Urine Mucus U [place] Prot/Creat Ratio 0.47 H 05/29/22 05/29/22 05/28/22 05:09 05:08 20:40 WBC RBC 2.89 L Hgb 9.1 L Hct 29.2 L POC Hct 29.0 L MCV 101.0 H Immature Gran % (Auto) Lymph % (Auto) 14.8 L Lymph # (Auto) 1.45 L [place] # (Auto) 0.99 H Immature Gran # Absolute Neutrophils D-Dimer Sodium Chloride POC BUN 46 H BUN 48 H Creatinine 3.0 H POC Creatinine 3.5 H POC Glucose AST ALT Alkaline Phosphatase NT-Pro-B Natriuret Pep Urine Protein Urine RBC Urine WBC Urine Bacteria Urine Mucus U [place] Prot/Creat Ratio 05/28/22 05/28/22 05/28/22 19:10 17:32 17:32 WBC RBC Hgb Hct POC Hct MCV Immature Gran % (Auto) Lymph % (Auto) Lymph # (Auto) [place] # (Auto) Immature Gran # Absolute Neutrophils D-Dimer 1.20 H Sodium Chloride POC BUN BUN Creatinine POC Creatinine POC Glucose AST ALT Alkaline Phosphatase NT-Pro-B Natriuret Pep 70612.0 H Urine Protein 30 A Urine RBC 5 H Urine WBC 7 H Urine Bacteria Few A Urine Mucus Few A U [place] Prot/Creat Ratio 05/28/22 05/28/22 05/28/22 17:32 17:32 17:32 WBC RBC 3.10 L Hgb 9.6 L Hct 31.0 L POC Hct 33.0 L MCV Immature Gran % (Auto) 0.8 H Lymph % (Auto) 12.0 L Lymph # (Auto) 1.27 L [place] # (Auto) 1.03 H Immature Gran # 0.09 H Absolute Neutrophils 8.09 H D-Dimer Sodium Chloride POC BUN 47 H BUN Creatinine POC Creatinine 3.4 H POC Glucose 111 H AST 36 H ALT 68 H Alkaline Phosphatase 124 H NT-Pro-B Natriuret Pep Urine Protein Urine RBC Urine WBC Urine Bacteria Urine Mucus U [place] Prot/Creat Ratio Meds: Medications Acetaminophen (Acetaminophen 500 Mg Tablet) 1,000 mg PO Q8HP PRN; Protocol PRN Reason: Per Pain Protocol Last Admin: 05/30/22 10:14 Dose: 1,000 mg Al Hydrox/Mg Hydrox/Simethicone (Mag Hydrox/Al Hydrox/Simeth 30 Ml Oral.Susp) 30 ml PO Q4HP PRN PRN Reason: Dyspepsia Last Admin: 05/29/22 10:03 Dose: 30 ml Albuterol/Ipratropium (Ipratropium/Albuterol 3 Ml Ampul.Neb) 3 ml NEB Q6HRT [facility] Last Admin: 05/30/22 13:22 Dose: 3 ml Azithromycin (Azithromycin 250 Mg Tablet) 250 mg PO DAILY [facility]; Protocol Stop: 06/01/22 09:01 Last Admin: 05/30/22 08:43 Dose: 250 mg Budesonide (Budesonide 0.5 Mg/2 Ml Ampul.Neb) 0.5 mg NEB Q12 [facility] Last Admin: 05/30/22 07:20 Dose: 0.5 mg Calcium Carbonate/Glycine (Calcium Carbonate 500 Mg Tab.Chew) 500 mg CHEWED Q4HP PRN PRN Reason: Dyspepsia Docusate Sodium (Docusate Sodium 100 Mg Capsule) 100 mg PO BID [facility] Last Admin: 05/30/22 08:44 Dose: 100 mg Enoxaparin Sodium (Enoxaparin 80 Mg/0.8 Ml Syringe) 80 mg SQ BID [facility] Last Admin: 05/30/22 08:43 Dose: 80 mg Furosemide (Furosemide 40 Mg/4 Ml Vial) 40 mg IV BIDD [facility] Hydralazine HCl (Hydralazine 10 Mg Tablet) 10 mg PO TID [facility] Last Admin: 05/30/22 08:44 Dose: Not Given Diltiazem HCl 125 mg/ Dextrose 125 mls @ 5 mls/hr IV Q24H [facility]; Protocol Last Titration: 05/30/22 13:10 Dose: 5 mg/hr, 5 mls/hr Lactulose (Lactulose 20 Gm/30 Ml Oral.Edda) 10 gm PO DAILYP PRN PRN Reason: Constipation Omeprazole (Omeprazole 20 Mg Capsule) 40 mg PO ACB [facility] Last Admin: 05/30/22 07:34 Dose: 40 mg Ondansetron HCl (Ondansetron 4 Mg/2 Ml Vial) 4 mg IV Q4HP PRN; Protocol PRN Reason: Nausea And Vomiting Prednisone (Prednisone 20 Mg Tablet) 40 mg PO QAC [facility] Last Admin: 05/30/22 08:44 Dose: 40 mg Senna (Sennosides 1 Tablet) 2 tab PO HSP PRN PRN Reason: Constipation Senna (Sennosides 1 Tablet) 2 tab PO HS [facility] Last Admin: 05/29/22 20:03 Dose: Not Given Sodium Chloride (0.9 % Sodium Chloride 10 Ml Syringe) 10 ml IV Q8 [facility] Last Admin: 05/30/22 05:05 Dose: 10 ml Sucralfate (Sucralfate 1 Gm/10 Ml Oral.Susp) 1 gm PO TIDAC [facility] Last Admin: 05/30/22 11:52 Dose: 1 gm Vancomycin HCl (Vancomycin Per Pharmacy) 1 order IV [facility] [place]; Protocol A/P Narrative A/P Narrative: A: #Acute hypoxemic respiratory failure: copd vs chf -2/2 shunting (pulm edema, COPD, pleural effusions, atelectasis) -Continue supplemental O2, wean off as able -on 2L NC #AECOPD(not on home O2) -Patient is former smoker and had productive cough and wheezing on admission -Continue duonebs, pulmicort, prednisone, zithromax #Acute congestive heart failure: -2/2 uncontrolled HTN and tachyarrhythmia. No evidence of acute ischemia -DDx: valvular disease, ischemia -Investigations: TTE results pending -Tx: Lasix 80mg IV/bid-> switch to 40mg IV/bid -Monitor Is/Os, daily weight, daily BMP -f/u CXR #AFib(new) w/ RVR: -uptitrated lopressor to 50mg PO bid, and given 5mg IV x 1 this morning, wean off dilt gtt -continue therapeutic lovenox, and may consider switching to Eliquis in the setting of renal dysfunction #Bilateral pleural effusions -Seen on CT chest -Continue tx as above #GISELLE -Unclear whether this was truely acute (?NSAID use recently) vs acute on chronic 2/2 hypertensive nephropathy -Full w/u by nephrology, Nephrology following -Cr 3.5>3.3 -Renal dose meds #Anemia: -Occult stool positive -Dr. Sanders recommends f/u and no need for endoscopy at this time, but f/u outpt for endoscopy -Continue PPI and sucralfate -monitor H&H #Enterococcal UTI -Urine cx returned positive, started empiric Vanco #Hyponatremia: - #HTN: uncontrolled -hydralazine started #ppi: lovenox Time Spent With Patient Time: Total time spent is greater than 50% in coordination of care (as documented) at patient's floor/unit and/or counseling patient: QUALITY VTE Deep Vein Thrombosis/Pulmonary Embolism Present on Admission: No
[2022-05-30] MEDS: FUROSEMIDE 40 MG/4 ML VIAL IV SCH (15:58)
[2022-05-30] MEDS: METOPROLOL TARTRATE 50 MG TABLET PO SCH (20:56)
[2022-05-30] MEDS: SENNOSIDES 1 TABLET PO SCH (20:56)
[2022-05-30] MEDS ORDERED: METOPROLOL SUCCINATE 50 MG TAB.XL.24H PO SCH (21:00)
[2022-05-31] MEDS: IPRATROPIUM/ALBUTEROL 3 ML AMPUL.NEB NEB SCH ×4 (00:08→19:22)
[2022-05-31] MEDS: METOPROLOL TARTRATE 5 MG/5 ML VIAL IV PRN ×3 (01:43→17:55)
[2022-05-31] MEDS ORDERED: METOPROLOL TARTRATE 5 MG/5 ML VIAL IV ONE ×2 (01:58→02:15)
[2022-05-31] MEDS: ACETAMINOPHEN 500 MG TABLET PO PRN ×2 (02:24→12:20)
[2022-05-31] MEDS ORDERED: DILTIAZEM 125 MG/25 ML VIAL IV ONE (03:05)
[2022-05-31] MEDS: DILTIAZEM 125 MG in DEXTROSE 5% IN WATER 100 ML IV SCH ×2 (03:13→09:31)
[2022-05-31] MEDS: 0.9 % SODIUM CHLORIDE 10 ML SYRINGE IV SCH ×3 (05:20→21:35)
[2022-05-31 06:38] LABS: Hematocrit 29.1 % (34.1-44.9); Hemoglobin 9.2 g/dL (11.2-15.7); Mean Cell Volume 98.3 fL (80.0-100.0); Mean Corpuscular HGB Conc 31.6 g/dL (31.0-36.0); Platelet Count 398 K/mcL (140-440); RBC 2.96 M/mcL (3.59-5.38); Red Cell Distribution Width 13.9 % (11.5-14.5); WBC 11.3 K/mcL (4.5-11.0)
--- NOTE | 2022-05-31 07:07 | EKG ---
[facility] Test Date: 2022-05-29 Pat Name: Luana Menon Department: ICU Room: 120A Gender: Female Russian History Professor: : 1955 Requested By: Roxana Cason Order Number: [id number] Reading MD: Reji Quiñonez M.D. Measurements Intervals [place] Rate: 125 P: [place]: QRS: 53 QRSD: 88 T: 58 QT: 337 QTc: 486 Interpretive Statements Atrial fibrillation Low voltage, extremity leads Borderline prolonged QT interval Electronically Signed On 05-31-2022 7:06:45 PDT by Reji Quiñonez M.D. /store/[email or web address]/[id number]
[2022-05-31 07:08] LABS: ALT/SGPT 46 U/L (<40); AST/SGOT 30 U/L (<32); Albumin 3.3 gm/dL (3.2-5.2); Albumin/Globulin Ratio 1.2 (1.0-2.3); Alkaline Phosphatase 91 U/L (39-117); Bilirubin,Direct < 0.2 mg/dL (0-0.3); Bilirubin,Total 0.2 mg/dL (0.1-1.0); Blood Urea Nitrogen 66 mg/dL (8-23); Calcium 8.8 mg/dL (8.6-10.4); Carbon Dioxide 22 mmol/L (22-30); Chloride 97 mmol/L (96-108); Globulin 2.7 gm/dL (2.2-3.7); Glomerular Filtration Rate 14; Glucose 92 mg/dL (70-105); Lactate Dehydrogenase 235 U/L (135-225); Phosphorous 3.9 mg/dL (2.5-4.5); Triglycerides 132 mg/dL (<150); Uric Acid 9.1 mg/dL (2.5-8.0)
--- NOTE | 2022-05-31 07:10 | EKG ---
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 Measurements Intervals [place] Rate: 132 P: [place]: QRS: 68 QRSD: 91 T: 147 QT: 315 QTc: 468 Interpretive Statements Atrial fibrillation Nonspecific T abnormalities, lateral leads Electronically Signed On 05-31-2022 7:10:37 PDT by Reji Quiñonez M.D. /store/[email or web address]/[id number]
--- NOTE | 2022-05-31 07:13 | EKG ---
[facility] Test Date: 2022-05-30 Pat Name: Luana Menon Department: ICU Room: 120A Gender: Female Incident Response Manager: : 1955 Requested By: Attila Henderson Order Number: [id number] Reading MD: Reji Quiñonez M.D. Measurements Intervals [place] Rate: 80 P: 78 [place]: 173 QRS: 68 QRSD: 84 T: 92 QT: 392 QTc: 452 Interpretive Statements Sinus rhythm Left atrial enlargement Nonspecific T abnrm, anterolateral leads Electronically Signed On 05-31-2022 7:13:30 PDT by Reji Quiñonez M.D. /store/[email or web address]/[id number]
--- NOTE | 2022-05-31 07:19 | Nephrology Progress Note ---
SUBJECTIVE Subjective Patient information: Note initiated : 05/31/22 at 7:16 am Patient: Luana Menon 67 y/o F admitted on 05/28/22 for kidney function eval-CHF,AF. Chief Complaint: Weakness Principal diagnosis: Dyspnea Pertinent ROS: Weakness Constitutional Vitals: Vital Signs Temp Pulse Resp BP Pulse Ox O2 Del Method O2 Flow Rate 98.0 F 92 H 23 H 117/71 92 Nasal Cannula 2 05/31/22 04:01 05/31/22 06:00 05/31/22 06:00 05/31/22 06:00 05/31/22 06:44 05/31/22 06:44 05/31/22 06:44 Period Temp Pulse Resp BP Sys/Armendariz Pulse Ox O2 Del Method O2 Flow Rate Last 24 Hr 97.7 F-98.2 F 20-156 13-43 99-146/56-98 82-98 Nasal Cannula- Room Air 2-2 Intake and Output 05/30/22 05/31/22 05/31/22 19:59 03:59 11:59 Intake Total 33 1612 4 Output Total 850 700 100 Balance -817 912 -96 Weight 169 lb 4.8 oz 166 lb 3.2 oz Intake & Output: Intake & Output 05/30/22 05/31/22 05/31/22 19:59 03:59 11:59 Intake Total 33 1612 4 Output Total 850 700 100 Balance -817 912 -96 Weight 169 lb 4.8 oz 166 lb 3.2 oz Intake: IV 33 2 4 Cardizem 125 mg In Dextrose 5% 33 2 4 in Water 100 ml @ 5 MG/HR 5 mls /hr IV Q24H [facility] Rx#:[id number] Oral 1610 Output: Void Amount 850 700 100 Other: Meal Dinner Percent of Meal Consumed 100% Feeding Ability Independent Urine Appearance Clear Clear Clear Urine Color Yellow Yellow Yellow Pale Pale Urine Odor Normal Stool Size Large Stool Color Brown Stool Consistency Soft Formed # Bowel Movements 1 General appearance: cooperative and no acute distress Head Head exam: Present normal inspection Eye Eye exam: Present normal appearance ENT ENT exam: Present mucous membranes moist Respiratory Respiratory exam: Absent respiratory distress Cardiovascular Cardiovascular exam: Present normal rate and rhythm GI/Abdominal GI/Abdominal exam: Present soft; Absent tenderness Extremities Exam Extremities exam: Absent joint swelling or pedal edema Neurological Exam Neurological exam: Present alert and oriented X3 Psychiatric Psychiatric exam: Present normal affect and normal mood Skin Skin exam: Present warm; Absent rash A/P Assessment and plan (1) Acute kidney injury: Assessment and plan: Luana Menon is a 67-year-old female sent to ED by her PCP for elevated serum creatinine. Her serum creatinine was elevated a week ago and failed to improve. In ED, her workup was also significant for anemia, CHF and atrial fibrillation. Nephrology consultation was requested for acute kidney injury. Acute kidney injury, present on arrival. There is no recent history of IV contrast administration. Intravascular volume depletion unlikely. She had heavy NSAID use for about 3 months until April 2022. Work up: Urinalysis on 05/28/22: Yellow, Clear, pH 5.0, SG 1.019, protein 30, blood negative, leukocyte esterase negative, culture pending. Urine Sodium on 05/28/22: 72 mmol/L. Renal US on 05/28/22: Normal renal ultrasound. Random urine protein/creatinine ratio on 05/29/22: 470 mg/g creatinine. Labs on 05/29/22: C3 143.5, C4 25.8. SPEP, dsDNA Ab, ANCA screen, anti-GBM Ab ordered on 05/29/22. Progress: Serum creatinine 3.3 in the past 24 hours. Baseline serum creatinine: 1.0 on 10/03/20, no labs since then. Urine output: 2700 ml reported in the past 24 hours. No uremic symptoms. Recommendations/Plan: No acute hemodialysis need. Outpatient nephrology follow up. Avoid NSAIDs, nephrotoxic medications and IV contrast. Monitor BMP and urine output. Status: Acute Time Spent With Patient Time: Total time spent is greater than 50% in coordination of care (as documented) at patient's floor/unit and/or counseling patient:
[2022-05-31] MEDS: BUDESONIDE 0.5 MG/2 ML AMPUL.NEB NEB SCH ×2 (07:42→19:22)
[2022-05-31] MEDS: OMEPRAZOLE 20 MG CAPSULE PO SCH (07:50)
[2022-05-31] MEDS: SUCRALFATE 1 GM/10 ML ORAL.SUSP PO SCH ×3 (07:50→16:40)
[2022-05-31] MEDS: FUROSEMIDE 40 MG/4 ML VIAL IV SCH (07:50)
[2022-05-31] MEDS: predniSONE 20 MG TABLET PO SCH (07:51)
--- NOTE | 2022-05-31 07:58 | Internal Med Progress Note ---
SUBJECTIVE Subjective Patient information: Note initiated : 05/31/22 at 7:49 am Service Date, if different from initiated Date: [] Patient: Luana Menon 67 y/o F admitted on 05/28/22 for kidney function eval-CHF,AF. Chief Complaint: [] Principal diagnosis: Dyspnea Interval history: Chief complaint: Dyspnea History of present illness: Ms. Menon is a 67 year old F with a past medical history significant for COPD as she is a former smoker, hyperlipidemia, and glaucoma who presents to the hospital with worsening dyspnea. Of note she was instructed by her primary care physician to come to the ER for further management and evaluation after it was discovered her lab work was quite abnormal. The patient states that she was seen by her PCP last week who told her that she was anemic and also had some renal dysfunction. Instructed her to increase p.o. intake and to repeat lab work yesterday. Lab work returned and noted. Much worse as she was found to have a creatinine of 3.5. On arrival she was hemodynamically stable and afebrile however was found to be in atrial fibrillation with RVR with concerns of congestive heart failure. She received a dose of IV Lasix and given 2 doses of Lopressor 5 mg IV. Nephrology were consulted. The hospital service was asked admit the patient for further management and evaluation. Of note, the patient has not a detailed historian. She states that normally she is in good health. We do not have any recent lab work. Her last known creatinine was 1 in 2019. She states that she is not on any blood pressure medications at home however her blood pressure was in the 180s on admission. She states that she quit smoking in 2016. She lives at home with her a nd states that she is otherwise independent. 05/30: The patient was feeling much better today. Unfortunately she went back into A-fib with RVR. Discussed the case with RN. 05/31 Patient converted to normal sinus rhythm yesterday but then went into A-fib RVR last night and was started on diltiazem which has now been off. She did convert this morning and. Diltiazem drip DC'd altogether given the updated information from the echo with poor EF. We will use esmolol if needed for RVR. Continue p .o. Lopressor and titrate up as needed. Creatinine same as yesterday. Sodium level better. Hold Lasix for now. Echo also showing diastolic dysfunction grade 2 and valvular disease with moderate MR. Continue beta-patricia and likely MALISSA when appropriate with renal function. Patient fell last December had back surgery and has had pain since then has not used a lot of NSAIDs. Likely the cause of her renal decline. Unknown what her baseline is at this point. initial cough and dyspnea improving. Review of Systems: denies headache/fever/chills/nausea/vomiting/chest or abdominal pain/cough/dyspnea/diarrhea. Otherwise see above. PHYSICAL EXAM General: Alert, Awake, No acute Distress Eyes/N/T: EOMI, no scleral icterus, Head/Neck: neck supple, full ROM, CV: RRR, No murmurs, Pulm: Clear b/l, no wheezing/rhonchi/rales, no respiratory distress Abd: soft, nontender, +BS x4 Ext: no clubbing/cyanosis/edema, nontender Neuro: Alert, no focal deficits, moves all extremities, sensations intact b/l upper/lower Psychiatric: Skin: warm/dry, normal color Constitutional Vitals: Vital Signs Temp Pulse Resp BP Pulse Ox O2 Del Method O2 Flow Rate 98.0 F 92 H 22 109/80 91 Nasal Cannula 2 05/31/22 04:01 05/31/22 06:00 05/31/22 07:22 05/31/22 07:22 05/31/22 07:22 05/31/22 07:22 05/31/22 07:22 Period Temp Pulse Resp BP Sys/Armendariz Pulse Ox O2 Del Method O2 Flow Rate Last 24 Hr 97.7 F-98.2 F 20-156 13-43 99-146/56-98 82-98 Nasal Cannula- Room Air 2-2 Intake and Output 05/30/22 05/31/22 05/31/22 19:59 03:59 11:59 Intake Total 33 1612 58 Output Total 850 700 100 Balance -817 912 -42 Weight 76.793 kg 75.387 kg Intake & Output: Intake & Output 05/30/22 05/31/22 05/31/22 19:59 03:59 11:59 Intake Total 33 1612 58 Output Total 850 700 100 Balance -817 912 -42 Weight 76.793 kg 75.387 kg Intake: IV 33 2 58 Cardizem 125 mg In Dextrose 5% 33 2 58 in Water 100 ml @ 5 MG/HR 5 mls /hr IV Q24H [facility] Rx#:[id number] Oral 1610 Output: Void Amount 850 700 100 Other: Meal Dinner Percent of Meal Consumed 100% Feeding Ability Independent Urine Appearance Clear Clear Clear Urine Color Yellow Yellow Yellow Pale Pale Urine Odor Normal Stool Size Large Stool Color Brown Stool Consistency Soft Formed # Bowel Movements 1 OBJ DATA Labs 05/31/22 05:10 05/31/22 05:10 Labs: Abnormal Lab Results 05/31/22 05/31/22 05/30/22 05:10 05:10 08:04 WBC 11.3 H RBC 2.96 L Hgb 9.2 L Hct 29.1 L POC Hct MCV Immature Gran % (Auto) Lymph % (Auto) Lymph # (Auto) [place] # (Auto) Immature Gran # Absolute Neutrophils D-Dimer Sodium 130 L Chloride 93 L POC BUN BUN 66 H 57 H Creatinine 3.3 H 3.3 H POC Creatinine POC Glucose Uric Acid 9.1 H GGT 63 H AST ALT 46 H Alkaline Phosphatase Lactate Dehydrogenase 235 H NT-Pro-B Natriuret Pep Urine Protein Urine RBC Urine WBC Urine Bacteria Urine Mucus U Flushing Prot/Creat Ratio 05/30/22 05/29/22 05/29/22 08:04 11:29 05:09 WBC 12.5 H RBC 3.15 L 2.89 L Hgb 9.7 L 9.1 L Hct 30.3 L 29.2 L POC Hct MCV 101.0 H Immature Gran % (Auto) Lymph % (Auto) 14.6 L 14.8 L Lymph # (Auto) 1.45 L [place] # (Auto) 1.15 H 0.99 H Immature Gran # 0.06 H Absolute Neutrophils 9.41 H D-Dimer Sodium Chloride POC BUN BUN Creatinine POC Creatinine POC Glucose Uric Acid GGT AST ALT Alkaline Phosphatase Lactate Dehydrogenase NT-Pro-B Natriuret Pep Urine Protein Urine RBC Urine WBC Urine Bacteria Urine Mucus U Flushing Prot/Creat Ratio 0.47 H 05/29/22 05/28/22 05/28/22 05:08 20:40 19:10 WBC RBC Hgb Hct POC Hct 29.0 L MCV Immature Gran % (Auto) Lymph % (Auto) Lymph # (Auto) [place] # (Auto) Immature Gran # Absolute Neutrophils D-Dimer Sodium Chloride POC BUN 46 H BUN 48 H Creatinine 3.0 H POC Creatinine 3.5 H POC Glucose Uric Acid GGT AST ALT Alkaline Phosphatase Lactate Dehydrogenase NT-Pro-B Natriuret Pep Urine Protein 30 A Urine RBC 5 H Urine WBC 7 H Urine Bacteria Few A Urine Mucus Few A U Flushing Prot/Creat Ratio 05/28/22 05/28/22 05/28/22 17:32 17:32 17:32 WBC RBC Hgb Hct POC Hct 33.0 L MCV Immature Gran % (Auto) Lymph % (Auto) Lymph # (Auto) [place] # (Auto) Immature Gran # Absolute Neutrophils D-Dimer 1.20 H Sodium Chloride POC BUN 47 H BUN Creatinine POC Creatinine 3.4 H POC Glucose 111 H Uric Acid GGT AST ALT Alkaline Phosphatase Lactate Dehydrogenase NT-Pro-B Natriuret Pep 25374.0 H Urine Protein Urine RBC Urine WBC Urine Bacteria Urine Mucus U Flushing Prot/Creat Ratio 05/28/22 05/28/22 17:32 17:32 WBC RBC 3.10 L Hgb 9.6 L Hct 31.0 L POC Hct MCV Immature Gran % (Auto) 0.8 H Lymph % (Auto) 12.0 L Lymph # (Auto) 1.27 L [place] # (Auto) 1.03 H Immature Gran # 0.09 H Absolute Neutrophils 8.09 H D-Dimer Sodium Chloride POC BUN BUN Creatinine POC Creatinine POC Glucose Uric Acid GGT AST 36 H ALT 68 H Alkaline Phosphatase 124 H Lactate Dehydrogenase NT-Pro-B Natriuret Pep Urine Protein Urine RBC Urine WBC Urine Bacteria Urine Mucus U [place] Prot/Creat Ratio Meds: Medications Acetaminophen (Acetaminophen 500 Mg Tablet) 1,000 mg PO Q8HP PRN; Protocol PRN Reason: Per Pain Protocol Last Admin: 05/31/22 02:24 Dose: 1,000 mg Al Hydrox/Mg Hydrox/Simethicone (Mag Hydrox/Al Hydrox/Simeth 30 Ml Oral.Susp) 30 ml PO Q4HP PRN PRN Reason: Dyspepsia Last Admin: 05/29/22 10:03 Dose: 30 ml Albuterol/Ipratropium (Ipratropium/Albuterol 3 Ml Ampul.Neb) 3 ml NEB Q6HRT [facility]MOND Last Admin: 05/31/22 07:42 Dose: 3 ml Azithromycin (Azithromycin 250 Mg Tablet) 250 mg PO DAILY [facility]MOND; Protocol Stop: 06/01/22 09:01 Last Admin: 05/30/22 08:43 Dose: 250 mg Budesonide (Budesonide 0.5 Mg/2 Ml Ampul.Neb) 0.5 mg NEB Q12 [facility] Last Admin: 05/31/22 07:42 Dose: 0.5 mg Calcium Carbonate/Glycine (Calcium Carbonate 500 Mg Tab.Chew) 500 mg CHEWED Q4HP PRN PRN Reason: Dyspepsia Docusate Sodium (Docusate Sodium 100 Mg Capsule) 100 mg PO BID [facility] Last Admin: 05/30/22 20:55 Dose: 100 mg Enoxaparin Sodium (Enoxaparin 80 Mg/0.8 Ml Syringe) 80 mg SQ BID [facility] Last Admin: 05/30/22 20:55 Dose: 80 mg Furosemide (Furosemide 40 Mg/4 Ml Vial) 40 mg IV BIDD [facility] Last Admin: 05/30/22 15:58 Dose: 40 mg Hydralazine HCl (Hydralazine 10 Mg Tablet) 10 mg PO TID [facility] Last Admin: 05/30/22 20:55 Dose: 10 mg Diltiazem HCl 125 mg/ Dextrose 125 mls @ 5 mls/hr IV Q24H [facility]; Protocol Last Titration: 05/31/22 07:45 Dose: 5 mg/hr, 5 mls/hr Lactulose (Lactulose 20 Gm/30 Ml Oral.Edda) 10 gm PO DAILYP PRN PRN Reason: Constipation Metoprolol Tartrate (Metoprolol Tartrate 50 Mg Tablet) 50 mg PO BID [facility] Last Admin: 05/30/22 20:56 Dose: 50 mg Metoprolol Tartrate (Metoprolol Tartrate 5 Mg/5 Ml Vial) 5 mg IV Q2HP PRN PRN Reason: Tachyarrhythmias HR>110 Last Admin: 05/31/22 01:43 Dose: 5 mg Omeprazole (Omeprazole 20 Mg Capsule) 40 mg PO ACB [facility] Last Admin: 05/30/22 07:34 Dose: 40 mg Ondansetron HCl (Ondansetron 4 Mg/2 Ml Vial) 4 mg IV Q4HP PRN; Protocol PRN Reason: Nausea And Vomiting Prednisone (Prednisone 20 Mg Tablet) 40 mg PO QAMCC [facility] Last Admin: 05/30/22 08:44 Dose: 40 mg Senna (Sennosides 1 Tablet) 2 tab PO HSP PRN PRN Reason: Constipation Senna (Sennosides 1 Tablet) 2 tab PO HS [facility] Last Admin: 05/30/22 20:56 Dose: 2 tab Sodium Chloride (0.9 % Sodium Chloride 10 Ml Syringe) 10 ml IV Q8 [facility] Last Admin: 05/31/22 05:20 Dose: 10 ml Sucralfate (Sucralfate 1 Gm/10 Ml Oral.Susp) 1 gm PO TIDAC [facility] Last Admin: 05/30/22 17:29 Dose: 1 gm Vancomycin HCl (Vancomycin Per Pharmacy) 1 order IV UD [facility]; Protocol A/P Narrative A/P Narrative: A: #Acute hypoxemic respiratory failure: copd vs chf -2/2 shunting (pulm edema, COPD, pleural effusions, atelectasis) -Continue supplemental O2, wean off as able, on 2L NC o/n but on room air currently -f/u cxr #AECOPD(not on home O2): -Patient is former smoker and had productive cough and wheezing on admission -Continue duonebs, pulmicort, prednisone, zithromax #Acute systolic (30-35%)/diastolic (II) CHF w/valvular dz(mod MR): -2/2 uncontrolled HTN and tachyarrhythmia. No evidence of acute ischemia -Tx: Lasix 80mg IV/bid-> switch to 40mg IV/bid - hold for now -Monitor Is/Os, daily weight, daily BMP -cont BB, start ACEI when renal fxn improved, d/c with diuretics -f/u with Cardio -f/u CXR #AFib(new) w/RVR: -uptitrated lopressor to 50mg PO bid, -continue therapeutic lovenox, and may consider switching to Eliquis in the setting of renal dysfunction -echo with poor EF, avoid nondihydropyridine CCB's #Bilateral pleural effusions: -Seen on CT chest -Continue tx as above #GISELLE (unknown baseline): -likely 2/2 chronic heavy NSAID use with possible chronic component of hypertensive nephropathy -w/u by nephrology, Nephrology following -Cr 3.5>3.3 -Renal dose meds #Anemia: likely at least gastritis from NSAID use -Occult stool positive -Dr. Sanders recommends f/u and no need for endoscopy at this time, but f/u outpt for endoscopy -Continue PPI and sucralfate -monitor H&H #Enterococcal UTI -Urine cx returned positive, on ampicillin #Hyponatremia: -improved #HTN: uncontrolled -hydralazine started, improved #GERD: #ppi: lovenox / home ppi Time Spent With Patient Time: Total time spent is greater than 50% in coordination of care (as documented) at patient's floor/unit and/or counseling patient: Subsequent: Total time with patient: 50 - 65 Minutes QUALITY VTE Deep Vein Thrombosis/Pulmonary Embolism Present on Admission: No
[2022-05-31 08:10] LABS: Band Neutrophils % 6 % (0-10); Lymphocytes % 7 % (15-49); Monocytes % (Manual) 9 % (1-12); Platelet Estimate NORMAL (Normal); RBC Morphology NORMAL (Normal); Segmented Neutrophils % 78 % (38-78)
[2022-05-31] MEDS: METOPROLOL TARTRATE 50 MG TABLET PO SCH ×2 (08:31→21:43)
[2022-05-31] MEDS: AZITHROMYCIN 250 MG TABLET PO SCH (08:31)
[2022-05-31] MEDS: ENOXAPARIN 80 MG/0.8 ML SYRINGE SQ SCH (08:31)
[2022-05-31] MEDS: DOCUSATE SODIUM 100 MG CAPSULE PO SCH ×2 (08:31→21:44)
[2022-05-31] MEDS: hydrALAZINE 10 MG TABLET PO SCH ×3 (08:37→21:44)
[2022-05-31] MEDS ORDERED: ESMOLOL 2,500 MG in PREMIX 1 BAG IV PRN (10:00)
[2022-05-31] MEDS: 0.9 % SODIUM CHLORIDE 250 ML IV SCH ×2 (10:29→21:51)
[2022-05-31] MEDS ORDERED: SODIUM CHLORIDE NASAL 1 SPRAY BOTTLE NAS PRN (10:30)
[2022-05-31] MEDS: AMPICILLIN SODIUM 1 GM in 0.9 % SODIUM CHLORIDE 50 ML IV SCH ×2 (11:07→21:51)
--- NOTE | 2022-05-31 11:36 | XRay Report ---
HISTORY: Follow-up congestive heart failure and effusions FINDINGS: The heart is mildly enlarged but magnified by portable technique. The pulmonary vessels, best seen in the mid and upper lung fan are normal in caliber. Patient has small bilateral pleural effusions, left greater than right. Most of the fluid in the right side is subpulmonic. There is mild consolidation in the basilar segments of the left lower lobe. No adenopathy is seen. Comparison with the prior chest CT done on 05/29/22 shows little change in the volume of pleural fluid. The emphysema seen on CT is less apparent on the portable chest x-ray. The pulmonary vascular congestion has resolved. IMPRESSION: Resolved pulmonary vascular congestion with residual small bilateral pleural effusions. Mild atelectasis or pneumonia in the left lung base Mild COPD Interpreted and Authenticated by: Regis Quiñonez 05/31/22
[2022-05-31] MEDS ORDERED: AMIODARONE 150 MG in DEXTROSE 5% IN WATER 50 ML IV ONE (15:36)
[2022-05-31] MEDS ORDERED: METOPROLOL TARTRATE 25 MG TABLET PO ONE (15:44)
[2022-05-31] MEDS: HYDROcodone/APAP 5/325MG TABLET PO PRN ×2 (16:41→21:44)
[2022-05-31 16:42] LABS: Albumin PEP 3.16 gm/dL (3.10-4.70); Alpha-1-Globulins 0.21 gm/dL (0.10-0.50); Beta Globulins 0.87 gm/dL (0.60-1.20); Gamma Globulins 0.95 gm/dL (0.50-1.70); Globulin PEP 3.1 gm/dL (2.4-3.6); Total Protein PEP 6.3 gm/dL (5.9-8.4)
[2022-05-31] MEDS: SENNOSIDES 1 TABLET PO SCH (21:35)
[2022-06-01] MEDS: ACETAMINOPHEN 500 MG TABLET PO PRN (00:10)
[2022-06-01] MEDS: HYDROcodone/APAP 5/325MG TABLET PO PRN ×2 (03:19→12:22)
[2022-06-01] MEDS: IPRATROPIUM/ALBUTEROL 3 ML AMPUL.NEB NEB SCH ×2 (03:26→07:41)
[2022-06-01] MEDS: 0.9 % SODIUM CHLORIDE 10 ML SYRINGE IV SCH (05:03)
[2022-06-01] MEDS: SUCRALFATE 1 GM/10 ML ORAL.SUSP PO SCH ×2 (07:18→11:06)
[2022-06-01] MEDS: OMEPRAZOLE 20 MG CAPSULE PO SCH (07:18)
[2022-06-01] MEDS: predniSONE 20 MG TABLET PO SCH (07:19)
[2022-06-01] MEDS: DOCUSATE SODIUM 100 MG CAPSULE PO SCH (07:19)
[2022-06-01] MEDS: AZITHROMYCIN 250 MG TABLET PO SCH (07:19)
[2022-06-01] MEDS: ENOXAPARIN 80 MG/0.8 ML SYRINGE SQ SCH (07:19)
[2022-06-01] MEDS: hydrALAZINE 10 MG TABLET PO SCH (07:22)
[2022-06-01] MEDS: BUDESONIDE 0.5 MG/2 ML AMPUL.NEB NEB SCH (07:41)
[2022-06-01 07:49] LABS: Blood Urea Nitrogen 71 mg/dL (8-23); Calcium 8.5 mg/dL (8.6-10.4); Carbon Dioxide 20 mmol/L (22-30); Chloride 101 mmol/L (96-108); Glomerular Filtration Rate 15; Glucose 94 mg/dL (70-105)
[2022-06-01] MEDS: AMPICILLIN SODIUM 1 GM in 0.9 % SODIUM CHLORIDE 50 ML IV SCH (08:08)
--- NOTE | 2022-06-01 08:21 | Internal Med Progress Note ---
SUBJECTIVE Subjective Patient information: Note initiated : 06/01/22 at 8:16 am Service Date, if different from initiated Date: [] Patient: Luana Menon 67 y/o F admitted on 05/28/22 for kidney function eval-CHF,AF. Chief Complaint: [] Principal diagnosis: Dyspnea Interval history: Chief complaint: Dyspnea History of present illness: Ms. Menon is a 67 year old F with a past medical history significant for COPD as she is a former smoker, hyperlipidemia, and glaucoma who presents to the hospital with worsening dyspnea. Of note she was instructed by her primary care physician to come to the ER for further management and evaluation after it was discovered her lab work was quite abnormal. The patient states that she was seen by her PCP last week who told her that she was anemic and also had some renal dysfunction. Instructed her to increase p.o. intake and to repeat lab work yesterday. Lab work returned and noted. Much worse as she was found to have a creatinine of 3.5. On arrival she was hemodynamically stable and afebrile however was found to be in atrial fibrillation with RVR with concerns of congestive heart failure. She received a dose of IV Lasix and given 2 doses of Lopressor 5 mg IV. Nephrology were consulted. The hospital service was asked admit the patient for further management and evaluation. Of note, the patient has not a detailed historian. She states that normally she is in good health. We do not have any recent lab work. Her last known creatinine was 1 in 2019. She states that she is not on any blood pressure medications at home however her blood pressure was in the 180s on admission. She states that she quit smoking in 2016. She lives at home with her a nd states that she is otherwise independent. 05/30: The patient was feeling much better today. Unfortunately she went back into A-fib with RVR. Discussed the case with RN. 05/31 Patient converted to normal sinus rhythm yesterday but then went into A-fib RVR last night and was started on diltiazem which has now been off. She did convert this morning and. Diltiazem drip DC'd altogether given the updated information from the echo with poor EF. We will use esmolol if needed for RVR. Continue p .o. Lopressor and titrate up as needed. Creatinine same as yesterday. Sodium level better. Hold Lasix for now. Echo also showing diastolic dysfunction grade 2 and valvular disease with moderate MR. Continue beta-patricia and likely MALISSA when appropriate with renal function. Patient fell last December had back surgery and has had pain since then has not used a lot of NSAIDs. Likely the cause of her renal decline. Unknown what her baseline is at this point. initial cough and dyspnea improving. Review of Systems: denies headache/fever/chills/nausea/vomiting/chest or abdominal pain/cough/dyspnea/diarrhea. Otherwise see above. PHYSICAL EXAM General: Alert, Awake, No acute Distress Eyes/N/T: EOMI, no scleral icterus, Head/Neck: neck supple, full ROM, CV: RRR, No murmurs, Pulm: Clear b/l, no wheezing/rhonchi/rales, no respiratory distress Abd: soft, nontender, +BS x4 Ext: no clubbing/cyanosis/edema, nontender Neuro: Alert, no focal deficits, moves all extremities, sensations intact b/l upper/lower Psychiatric: Skin: warm/dry, normal color Constitutional Vitals: Vital Signs Temp Pulse Resp BP Pulse Ox O2 Del Method O2 Flow Rate 97.9 F 72 25 H 125/80 96 Room Air 2 06/01/22 06:56 06/01/22 08:02 06/01/22 08:02 06/01/22 08:02 06/01/22 08:02 06/01/22 07:42 05/31/22 07:22 Period Temp Pulse Resp BP Sys/Armendariz Pulse Ox O2 Del Method O2 Flow Rate Last 24 Hr 97.5 F-98.4 F 29-157 16-37 98-160/51-133 84-100 Room Air-Room Air Intake and Output 05/31/22 06/01/22 06/01/22 19:59 03:59 11:59 Intake Total 2153 277 500 Output Total 800 275 Balance 1353 277 225 Weight 75.478 kg Intake & Output: Intake & Output 05/31/22 06/01/22 06/01/22 19:59 03:59 11:59 Intake Total 2153 277 500 Output Total 800 275 Balance 1353 277 225 Weight 75.478 kg Intake: IV 53 277 Sodium Chloride 0.9% 250 ml @ 227 20 mls/hr IV .[id number] [facility] Rx#: [id number] Cordarone 150 mg In Dextrose 5% 53 in Water 50 ml @ 300 mls/hr IV ONCE ONE Rx#:[id number] Ampicillin 1 gm In Sodium 50 Chloride 0.9% 50 ml @ 100 mls/ hr IV Q12H [facility] Rx#:[id number] Cardizem 125 mg In Dextrose 5% 0 in Water 100 ml @ 5 MG/HR 5 mls /hr IV Q24H [facility] Rx#:[id number] Oral 2100 500 Output: Void Amount 800 275 Other: Meal Dinner Percent of Meal Consumed 100% Feeding Ability Independent Urine Appearance Clear Clear Clear Urine Color Yellow Yellow Yellow Urine Odor Normal Normal # Voids 1 1 OBJ DATA Labs 05/31/22 05:10 06/01/22 05:18 Labs: Abnormal Lab Results 06/01/22 06/01/22 05/31/22 05:18 05:18 11:07 WBC RBC Hgb Hct Lymph % (Auto) [place] # (Auto) Lymphocytes % Immature Gran # Absolute Neutrophils Sodium Chloride Carbon Dioxide 20 L BUN 71 H Creatinine 3.1 H Uric Acid 8.8 H Calcium 8.5 L GGT ALT Lactate Dehydrogenase NT-Pro-B Natriuret Pep 7274.0 H U [place] Prot/Creat Ratio 05/31/22 05/31/22 05/30/22 05:10 05:10 08:04 WBC 11.3 H RBC 2.96 L Hgb 9.2 L Hct 29.1 L Lymph % (Auto) [place] # (Auto) Lymphocytes % 7 L Immature Gran # Absolute Neutrophils Sodium 130 L Chloride 93 L Carbon Dioxide BUN 66 H 57 H Creatinine 3.3 H 3.3 H Uric Acid 9.1 H Calcium GGT 63 H ALT 46 H Lactate Dehydrogenase 235 H NT-Pro-B Natriuret Pep U [place] Prot/Creat Ratio 05/30/22 05/29/22 08:04 11:29 WBC 12.5 H RBC 3.15 L Hgb 9.7 L Hct 30.3 L Lymph % (Auto) 14.6 L [place] # (Auto) 1.15 H Lymphocytes % Immature Gran # 0.06 H Absolute Neutrophils 9.41 H Sodium Chloride Carbon Dioxide BUN Creatinine Uric Acid Calcium GGT ALT Lactate Dehydrogenase NT-Pro-B Natriuret Pep U [place] Prot/Creat Ratio 0.47 H Meds: Medications Acetaminophen (Acetaminophen 500 Mg Tablet) 1,000 mg PO Q8HP PRN; Protocol PRN Reason: Per Pain Protocol Last Admin: 06/01/22 00:10 Dose: 1,000 mg Hydrocodone Bitart/Acetaminophen (Hydrocodone/Apap 5/325mg Tablet) 1 tab PO Q4HP PRN; Protocol PRN Reason: Per Pain Protocol Last Admin: 06/01/22 03:19 Dose: 1 tab Al Hydrox/Mg Hydrox/Simethicone (Mag Hydrox/Al Hydrox/Simeth 30 Ml Oral.Susp) 30 ml PO Q4HP PRN PRN Reason: Dyspepsia Last Admin: 05/29/22 10:03 Dose: 30 ml Albuterol/Ipratropium (Ipratropium/Albuterol 3 Ml Ampul.Neb) 3 ml NEB Q6HRT [facility] Last Admin: 06/01/22 07:41 Dose: 3 ml Azithromycin (Azithromycin 250 Mg Tablet) 250 mg PO DAILY [facility]; Protocol Stop: 06/01/22 09:01 Last Admin: 06/01/22 07:19 Dose: 250 mg Budesonide (Budesonide 0.5 Mg/2 Ml Ampul.Neb) 0.5 mg NEB Q12 [facility] Last Admin: 06/01/22 07:41 Dose: 0.5 mg Calcium Carbonate/Glycine (Calcium Carbonate 500 Mg Tab.Chew) 500 mg CHEWED Q4HP PRN PRN Reason: Dyspepsia Docusate Sodium (Docusate Sodium 100 Mg Capsule) 100 mg PO BID [facility] Last Admin: 06/01/22 07:19 Dose: 100 mg Enoxaparin Sodium (Enoxaparin 80 Mg/0.8 Ml Syringe) 80 mg SQ DAILY [facility] Last Admin: 06/01/22 07:19 Dose: 80 mg Hydralazine HCl (Hydralazine 10 Mg Tablet) 10 mg PO TID [facility] Last Admin: 06/01/22 07:22 Dose: 10 mg Esmolol HCl 2,500 mg/ Premix 250 mls @ 22.616 mls/hr IV .Q11H4M PRN; Protocol PRN Reason: tachy Sodium Chloride (Sodium Chloride 0.9%) 250 mls @ 20 mls/hr IV .[id number] [facility] Last Admin: 05/31/22 21:51 Dose: 20 mls/hr Ampicillin Sodium 1 gm/ Sodium (Chloride) 50 mls @ 100 mls/hr IV Q12H [facility] Last Admin: 06/01/22 08:08 Dose: 100 mls/hr Lactulose (Lactulose 20 Gm/30 Ml Oral.Edda) 10 gm PO DAILYP PRN PRN Reason: Constipation Metoprolol Tartrate (Metoprolol Tartrate 5 Mg/5 Ml Vial) 5 mg IV Q2HP PRN PRN Reason: Tachyarrhythmias HR>110 Last Admin: 05/31/22 17:55 Dose: 5 mg Metoprolol Tartrate (Metoprolol Tartrate 50 Mg Tablet) 75 mg PO BID [facility] Last Admin: 05/31/22 21:43 Dose: 75 mg Omeprazole (Omeprazole 20 Mg Capsule) 40 mg PO ACB [facility] Last Admin: 06/01/22 07:18 Dose: 40 mg Ondansetron HCl (Ondansetron 4 Mg/2 Ml Vial) 4 mg IV Q4HP PRN; Protocol PRN Reason: Nausea And Vomiting Prednisone (Prednisone 20 Mg Tablet) 40 mg PO QAMCC [facility] Last Admin: 06/01/22 07:19 Dose: 40 mg Senna (Sennosides 1 Tablet) 2 tab PO HS [facility] Last Admin: 05/31/22 21:35 Dose: Not Given Sodium Chloride (0.9 % Sodium Chloride 10 Ml Syringe) 10 ml IV Q8 [facility] Last Admin: 06/01/22 05:03 Dose: 10 ml Sodium Chloride (Sodium Chloride Nasal 1 Grover Bottle) 1 spray ESTER Q4HP PRN PRN Reason: Congestion Last Admin: 05/31/22 11:42 Dose: 1 spray Sucralfate (Sucralfate 1 Gm/10 Ml Oral.Susp) 1 gm PO TIDAC [facility] Last Admin: 06/01/22 07:18 Dose: 1 gm A/P Narrative A/P Narrative: A: #Acute hypoxemic respiratory failure: copd vs chf -2/2 shunting (pulm edema, COPD, pleural effusions, atelectasis) -Continue supplemental O2, wean off as able, on room air now -f/u cxr #AECOPD(not on home O2): -Patient is former smoker and had productive cough and wheezing on admission -Continue duonebs, pulmicort, prednisone, zithromax #Acute systolic (30-35%)/diastolic (II) CHF w/valvular dz(mod MR): -2/2 uncontrolled HTN and tachyarrhythmia. No evidence of acute ischemia -Tx: Lasix 80mg IV/bid-> switch to 40mg IV/bid - hold for now, -Monitor Is/Os, daily weight, daily BMP -cont BB, start ACEI when renal fxn improved, d/c with diuretics -f/u with Cardio -f/u CXR much improved #AFib(new) w/RVR: converted back again yesterday -uptitrated lopressor to 75mg PO bid, -continue therapeutic lovenox, and may consider switching to Eliquis in the setting of renal dysfunction -echo with poor EF, avoid nondihydropyridine CCB's #Bilateral pleural effusions: -Seen on CT chest -Continue tx as above #GISELLE (unknown baseline): -likely 2/2 chronic heavy NSAID use with possible chronic component of hypertensive nephropathy -w/u by nephrology, Nephrology following -Cr 3.5>3.3>3.1 -Renal dose meds -f/u with Nephrology outpt #Anemia: likely at least gastritis from NSAID use -Occult stool positive -Dr. Sanders recommends f/u and no need for endoscopy at this time, but f/u outpt for endoscopy -Continue PPI and sucralfate -monitor H&H #Enterococcal UTI -Urine cx returned positive, on ampicillin #Hyponatremia: -improved #HTN: uncontrolled -hydralazine started, improved #GERD: #ppi: lovenox / home ppi Time Spent With Patient Time: Total time spent is greater than 50% in coordination of care (as documented) at patient's floor/unit and/or counseling patient: Subsequent: Total time with patient: 50 - 65 Minutes QUALITY VTE Deep Vein Thrombosis/Pulmonary Embolism Present on Admission: No
--- NOTE | 2022-06-01 08:48 | Nephrology Progress Note ---
SUBJECTIVE Subjective Patient information: Note initiated : 06/01/22 at 8:45 am Patient: Luana Menon 67 y/o F admitted on 05/28/22 for kidney function eval-CHF,AF. Chief Complaint: Weakness Principal diagnosis: Dyspnea Pertinent ROS: Weakness Constitutional Vitals: Vital Signs Temp Pulse Resp BP Pulse Ox O2 Del Method O2 Flow Rate 97.9 F 72 25 H 125/80 96 Room Air 2 06/01/22 06:56 06/01/22 08:02 06/01/22 08:02 06/01/22 08:02 06/01/22 08:02 06/01/22 07:42 05/31/22 07:22 Period Temp Pulse Resp BP Sys/Armendariz Pulse Ox O2 Del Method O2 Flow Rate Last 24 Hr 97.5 F-98.4 F 29-157 16-37 98-160/51-133 84-100 Room Air-Room Air Intake and Output 05/31/22 06/01/22 06/01/22 19:59 03:59 11:59 Intake Total 2153 277 740 Output Total 800 625 Balance 1353 277 115 Weight 166 lb 6.4 oz Intake & Output: Intake & Output 05/31/22 06/01/22 06/01/22 19:59 03:59 11:59 Intake Total 2153 277 740 Output Total 800 625 Balance 1353 277 115 Weight 166 lb 6.4 oz Intake: IV 53 277 Sodium Chloride 0.9% 250 ml @ 227 20 mls/hr IV .[id number] [facility] Rx#: [id number] Cordarone 150 mg In Dextrose 5% 53 in Water 50 ml @ 300 mls/hr IV ONCE ONE Rx#:[id number] Ampicillin 1 gm In Sodium 50 Chloride 0.9% 50 ml @ 100 mls/ hr IV Q12H [facility] Rx#:[id number] Cardizem 125 mg In Dextrose 5% 0 in Water 100 ml @ 5 MG/HR 5 mls /hr IV Q24H [facility] Rx#:[id number] Oral 2100 740 Output: Void Amount 800 625 Other: Meal Dinner Breakfast Percent of Meal Consumed 100% 100% Feeding Ability Independent Independent Urine Appearance Clear Clear Clear Urine Color Yellow Yellow Yellow Urine Odor Normal Normal # Voids 1 1 General appearance: cooperative and no acute distress Head Head exam: Present normal inspection Eye Eye exam: Present normal appearance ENT ENT exam: Present mucous membranes moist Respiratory Respiratory exam: Absent respiratory distress Cardiovascular Cardiovascular exam: Present normal rate and rhythm GI/Abdominal GI/Abdominal exam: Present soft; Absent tenderness Extremities Exam Extremities exam: Absent joint swelling or pedal edema Neurological Exam Neurological exam: Present alert and oriented X3 Psychiatric Psychiatric exam: Present normal affect and normal mood Skin Skin exam: Present warm; Absent rash A/P Assessment and plan (1) Acute kidney injury: Assessment and plan: Luana Menon is a 67-year-old female sent to ED by her PCP for elevated serum creatinine. Her serum creatinine was elevated a week ago and failed to improve. In ED, her workup was also significant for anemia, CHF and atrial fibrillation. Nephrology consultation was requested for acute kidney injury. Acute kidney injury, present on arrival. There is no recent history of IV contrast administration. Intravascular volume depletion unlikely. She had heavy NSAID use for about 3 months until April 2022. Work up: Urinalysis on 05/28/22: Yellow, Clear, pH 5.0, SG 1.019, protein 30, blood negative, leukocyte esterase negative, culture pending. Urine Sodium on 05/28/22: 72 mmol/L. Renal US on 05/28/22: Normal renal ultrasound. Random urine protein/creatinine ratio on 05/29/22: 470 mg/g creatinine. Labs on 05/29/22: C3 143.5, C4 25.8, SPEP normal. dsDNA Ab, ANCA screen, anti-GBM Ab ordered on 05/29/22. Progress: Serum creatinine changed from 3.3 to 3.1 in the past 24 hours. Baseline serum creatinine: 1.0 on 10/03/20, [facility]. Urine output: 1550 ml reported in the past 24 hours. No uremic symptoms. Recommendations/Plan: No acute hemodialysis need. Outpatient nephrology follow up. Avoid NSAIDs, nephrotoxic medications and IV contrast. Monitor BMP and urine output. Status: Acute Time Spent With Patient Time: Total time spent is greater than 50% in coordination of care (as documented) at patient's floor/unit and/or counseling patient:
[2022-06-01] MEDS: METOPROLOL TARTRATE 50 MG TABLET PO SCH (09:28)
--- NOTE | 2022-06-01 10:31 | Discharge Summary ---
Discharge Provider Provider IMPORTANT FOLLOW-UP INFORMATION FOR PCP: Patient information: Note initiated : 06/01/22 at 10:25 am Service Date, if different from initiated Date: [] Patient: Luana Menon a 67 y/o F admitted on 05/28/22 for kidney function eval-CHF,AF. Chief Complaint: [] Date of admission: 05/28/22 22:05 Discharge date: 06/01/22 Primary care physician: Benson Joyce DO Consults: 05/28/22 Consult to Physician [CONS] Stat Comment: Consulting Provider: Roxana Cason Reason For Exam: Physician to Consult 05/29/22 12:03 Consult to Physician [CONS] Routine Comment: Consulting Provider: Jalyn Sanders Reason For Exam: Physician to Consult COURSE Hospital Course Hospital course: History of present illness: Ms. Menon is a 67 year old F with a past medical history significant for COPD as she is a former smoker, hyperlipidemia, and glaucoma who presents to the hospital with worsening dyspnea. Of note she was instructed by her primary care physician to come to the ER for further management and evaluation after it was discovered her lab work was quite abnormal. The patient states that she was seen by her PCP last week who told her that she was anemic and also had some renal dysfunction. Instructed her to increase p.o. intake and to repeat lab work yesterday. Lab work returned and noted. Much worse as she was found to have a creatinine of 3.5. On arrival she was hemodynamically stable and afebrile however was found to be in atrial fibrillation with RVR with concerns of congestive heart failure. She received a dose of IV Lasix and given 2 doses of Lopressor 5 mg IV. Nephrology were consulted. The hospital service was asked admit the patient for further management and evaluation. Of note, the patient has not a detailed historian. She states that normally she is in good health. We do not have any recent lab work. Her last known creatinine was 1 in 2019. She states that she is not on any blood pressure medications at home however her blood pressure was in the 180s on admission. She states that she quit smoking in 2016. She lives at home with her and states that she is otherwise independent. 05/30: The patient was feeling much better today. Unfortunately she went back into A-fib with RVR. Discussed the case with RN. 05/31 Patient converted to normal sinus rhythm yesterday but then went into A-fib RVR last night and was started on diltiazem which has now been off. She did convert this morning and. Diltiazem drip DC'd altogether given the updated information from the echo with poor EF. We will use esmolol if needed for RVR. Continue p.o. Lopressor and titrate up as needed. Creatinine same as yesterday. Sodium level better. Hold Lasix for now. Echo also showing diastolic dysfunction grade 2 and valvular disease with moderate MR. Continue beta-patricia and likely MALISSA when appropriate with renal function. Patient fell last December had back surgery and has had pain since then has not used a lot of NSAIDs. Likely the cause of her renal decline. Unknown what her baseline is at this point. initial cough and dyspnea improving. 06/01 Patient feeling better. Currently in sinus rhythm. No overnight event or new complaints. Creatinine 3.1 down from 3.3 yesterday. A: #Acute hypoxemic respiratory failure: copd vs chf #AECOPD(not on home O2): -Patient is former smoker -Continue home inhalers, #Acute systolic (30-35%)/diastolic (II) CHF w/valvular dz(mod MR): -2/2 uncontrolled HTN and tachyarrhythmia. No evidence of acute ischemia -cont BB, start ACEI when renal fxn improved, d/c with PO lasix -f/u with Cardio #AFib(new) w/RVR: converted back again yesterday -uptitrated lopressor to 75mg PO bid, -Eliquis #Bilateral pleural effusions: #GISELLE (unknown baseline): -likely 2/2 chronic heavy NSAID use with possible chronic component of hypertensive nephropathy -Cr 3.5>3.3>3.1 -Renal dose meds -f/u with Nephrology outpt #Anemia: likely at least gastritis from NSAID use -Occult stool positive -Dr. Sanders recommends f/u and no need for endoscopy at this time, but f/u outpt for endoscopy -Continue PPI #Enterococcal UTI: #Hyponatremia: #HTN: #GERD: Discharge diagnosis: Acute hypoxic respiratory failure AECOPD, CHF, A-fib RVR GISELLE Secondary discharge diagnosis: Possible chronic kidney disease. Anemia possibly gastritis. Enterococcal UTI hyponatremia pretension GERD Time Spent with Patient Time attestation: Total time spent providing and/or coordinating discharge services: Time spent: Greater than 30 minutes EXAM Constitutional Vitals: Temp Pulse Resp BP Pulse Ox O2 Del Method O2 Flow Rate 97.9 F 73 19 103/67 91 Room Air 2 06/01/22 06:56 06/01/22 10:01 06/01/22 10:01 06/01/22 10:01 06/01/22 10:01 06/01/22 07:42 05/31/22 07:22 Discharge Data Data Completed and Pending Labs on day of discharge: Labs from last 24 hours 06/01/22 06/01/22 05/31/22 05:18 05:18 11:07 Sodium 135 Potassium 4.3 Chloride 101 Carbon Dioxide 20 L Anion Gap 14.0 BUN 71 H Creatinine 3.1 H GFR Calculation 15 Glucose 94 Uric Acid 8.8 H Calcium 8.5 L Transferrin NT-Pro-B Natriuret Pep 7274.0 H Total Protein (PEP) Albumin (PEP) Globulin (PEP) Albumin/Globulin (PEP) Fqggd-[id number] Dbadv-0-Aiopuuscu Beta Globulins Gamma Globulins PEP Interpretation 05/29/22 05/28/22 10:00 18:02 Sodium Potassium Chloride Carbon Dioxide Anion Gap BUN Creatinine GFR Calculation Glucose Uric Acid Calcium Transferrin 204 NT-Pro-B Natriuret Pep Total Protein (PEP) 6.3 Albumin (PEP) 3.16 Globulin (PEP) 3.1 Albumin/Globulin (PEP) 1.0 Fbibn-7-Jjvsuuled 0.21 Cauqn-9-Gmmuhxzuh 1.10 Beta Globulins 0.87 Gamma Globulins 0.95 PEP Interpretation See comment Discharge Plan Patient/Caregiver Discharge Instructions Instructions: Heart Failure (GEN), A-fib (Atrial Fibrillation) (GEN), Acute Kidney Injury (GEN) Activity Restrictions/Additional Instructions: Don't start eliquis until tomorrow morning (06/02/2022). 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 3 to 14 days for new A-fib and systolic/diastolic heart failure Prescriptions: New metoprolol tartrate 50 mg Tablet 75 mg PO BID Qty: 90 0RF Eliquis 5 mg tablet 5 mg PO BID Qty: 60 0RF Continued multivitamin Tablet 1 tab PO QDAY cholecalciferol (vitamin D3) [Vitamin D3] 125 mcg (5,000 unit) Tablet 125 mcg PO QDAY PreserVision AREDS-2 250-90-40-1 mg Capsule 2 tab PO QDAY albuterol sulfate 90 mcg/actuation HFA aerosol inhaler 2 puff INHALATION Q4-6HP PRN (Reason: Dyspnea) prednisolone acetate 1 % drops,suspension 1 drp OPHTHALMIC (EYE) QID Patient Comments: Patient takes four times a day as advised by her eye doctor Mike Liamamelia 200-62.5-25 mcg blister with device 1 ea INHALATION QDAY rosuvastatin 5 mg tablet 5 mg PO QDAY Patient Comments: Patient told this RN that she stopped taking this a few months ago. Changed omeprazole 20 mg capsule,delayed release(DR/EC) 40 mg PO QHS Qty: 30 0RF Follow Up Plan Follow up with: Jalyn Sanders MD [Physician] - (FOBT (+) - gastritis vs PUD from chronic NSAID use. possible Endoscopy eval) Shon Mcmahon MD [Physician] - 06/08/22 1:00 pm (Please check in at 12:45 pm) Benson Joyce DO [Primary Care Provider] - 06/07/22 10:00 am (Please check in at 9:45 am) Patient Disposition: Home, Self-Care Prognosis: Fair Overall status at discharge: patient is progressing back to baseline Discharge Orders: Discharge Order (Routine); Ordered 06/01/22 Ordered By: Attila Henderson [facility] VTE Deep Vein Thrombosis/Pulmonary Embolism Present on Admission: No
[2022-06-01 16:01] LABS: DNA Antibody DS <1 IU/mL
[2022-06-02 11:16] LABS: Anti-Glomerular Basement Memb <1.0 AI (<1.0)
[2022-06-03 18:46] LABS: Myeloperoxidase Antibody <1.0 AI (<1.0)
== END 2022-06-01 12:35 | disposition home or self-care (01) | DRG 189 ==
LOC: ED 17:06 → ICU 22:05
PROVIDERS: ADMIT Student in an Organized Health Care Education/Training Program; ATTEND Internal Medicine